=== PATIENT | female | born 1995 ===

== ENCOUNTER 2020-06-01 11:37 | Outpatient (REF) | payer OTHER, SELFPAY ==
[2020-06-01 14:47] LABS: Syphilis Screen Nonreactive (Nonreactive)
[2020-06-02 05:20] LABS: HIV AB/AG Nonreactive (Nonreactive); HIV Num 1 0.05 S/CO (0.00-0.99); ~HepC Num1 0.07 S/CO (0.00-0.79); ~Hepatitis C Antibody Nonreactive (Nonreactive)
[2020-06-02 05:39] LABS: HBsAGNum1 0.14 S/CO (0.00-0.99); Hepatitis B Surface Antigen Negative (Negative)
[2020-06-02 09:36] LABS: CT PCR NOT DETECTED (Not Detect.); NG PCR NOT DETECTED (Not Detect.)
[2020-06-09 05:47] LABS: HPV 16 RNA NOT DETECTED (NOT DETECTED); HPV mRNA E6/E7 rflx Detected (Not Detected)
== END 2020-06-01 11:38 | disposition home or self-care (01) ==
LOC: HO.LAB 11:37
PROVIDERS: PCP Nurse Practitioner Family; Visit Provider Advanced Practice Midwife
DX: Z01.419 Encounter for gynecological examination (general) (routine) without abnormal findings (principal); Z20.2 Contact with and (suspected) exposure to infections with a predominantly sexual mode of transmission; E89.0 Postprocedural hypothyroidism; F17.210 Nicotine dependence, cigarettes, uncomplicated; Z91.013 Allergy to seafood; Z97.5 Presence of (intrauterine) contraceptive device
CPT/HCPCS: 36415; 86780; 86803; 87340; 87389; 87491; 87591; 87624; 87625; 88141; 88142

== ENCOUNTER → 2020-06-22 14:33 | Outpatient (BNVA) | payer OTHER, SELFPAY | PROVIDERS: Visit Provider Internal Medicine ==

== ENCOUNTER 2020-06-25 07:30 | Outpatient (REF) | payer OTHER, SELFPAY ==
[2020-06-25 07:54] LABS: MANUAL DIFF FLAG NO
[2020-06-25 07:58] LABS: Basophils Percent Auto 0.6 % (0-2); Eosinophils Absolute Auto 0.5 X10*3/uL (0.0-0.4); Eosinophils Percent Auto 6.7 % (0-4); Hematocrit 43.8 % (37-47); Hemoglobin 14.5 g/dl (12.0-16.0); Imm Gran Abs Auto 0.01 X10*3/uL (0.00-0.03); Imm Gran Pct Auto 0.1 % (0.0-0.4); Lymphocytes Absolute Auto 2.7 X10*3/uL (1.2-4.9); Lymphocytes Percent Auto 38.6 % (20-40); Mean Corpuscular HGB Conc 33.1 g/dl (31.0-35.0); Mean Corpuscular Hemoglobin 28.6 pg (27.0-33.0); Mean Corpuscular Volume 86.4 fL (80-98); Mean Platelet Volume 9.1 fL (9.4-12.3); Monocytes Absolute Auto 0.5 X10*3/uL (0.1-1.2); Monocytes Percent Auto 7.3 % (2-11); Neutrophils Absolute Auto 3.3 X10*3/uL (2.0-8.3); Neutrophils Percent Auto 46.7 % (45-73); Platelet Count 341 X10*3/uL (160-400); Red Blood Count 5.07 X10*6/uL (4.20-5.50); Red Cell Distribution Width 12.6 % (11.0-16.0)
[2020-06-25 08:25] LABS: Alanine Aminotransferase 114 U/L (0-31); Albumin Level 4.7 g/dL (3.5-5.0); Alkaline Phosphatase 74 U/L (39-117); Anion Gap 10 (12-20); Aspartate Amino Transferase 69 U/L (5-31); Bilirubin Total 0.4 mg/dL (0.0-1.0); Blood Urea Nitrogen 10 mg/dL (9-16); Calcium 9.7 mg/dL (8.4-10.2); Carbon Dioxide 30 mmol/L (22-29); Chloride 104 mmol/L (96-108); Cholesterol 184 mg/dL; Estimated Glomerular Filt Rate > 60; Glucose Fasting 94 mg/dL (60-99); HDL Cholesterol 50 mg/dL; LDL Cholesterol Calculated 127 mg/dl; Potassium 4.5 mmol/L (3.3-5.1); Sodium 139 mmol/L (135-145); Total Protein 7.7 g/dL (6.5-8.0); Triglycerides 38 mg/dL
[2020-06-25 08:46] LABS: Free T4 (Free Thyroxine) 0.91 ng/dL (0.71-1.85); Thyroid Stimulating Hormone 1.21 uIU/mL (0.32-4.0); Vitamin D 25-OH Total 14.7 ng/mL (>30)
== END 2020-06-25 07:31 | disposition home or self-care (01) ==
LOC: HO.LAB 07:30
PROVIDERS: Absent Provider Nurse Practitioner Family; PCP Nurse Practitioner Family; Visit Provider Internal Medicine
DX: E89.0 Postprocedural hypothyroidism (principal); E04.2 Nontoxic multinodular goiter; E55.9 Vitamin D deficiency, unspecified
CPT/HCPCS: 36415; 80053; 80061; 82306; 84439; 84443; 85025

== ENCOUNTER → 2020-06-27 12:57 | Outpatient (BNVA) | payer OTHER, SELFPAY | PROVIDERS: Visit Provider Obstetrics & Gynecology ==

== ENCOUNTER 2020-06-30 16:28 | Outpatient (REF) | payer OTHER, SELFPAY ==
--- NOTE | ~2020-06-30 | US_ITS ---
EXAMINATION: US THYROID CLINICAL INFORMATION: Nontoxic multinodular goiter. COMPARISON: Ultrasound soft tissue head/neck thyroid dated 10/01/2017. TECHNIQUE: Linear transducer grayscale and color Doppler examination with attention to the region of the thyroid. FINDINGS: SIZE: Measurements of the solitary right thyroid lobe and nodules are given in sagittal, anteroposterior and transverse dimensions respectively. Right Thyroid Lobe: 5.1 x 1.3 x 1.7 cm, volume 6.0 mL. Previously 4.7 x 1.7 x 1.4 cm, volume 6.0 mL. Parenchyma: The gland echotexture is homogeneous. Thyroid vascularity is normal. Left Thyroid Lobe: Surgically absent. Isthmus: 0.2 cm in maximum AP dimension. Previously 0.2 cm. There are multiple colloid cysts seen in the right lobe. This is similar to September 2017 exam. The largest measures 0.7 x 0.4 x 0.3 cm in the inferior right lobe. No other focal thyroid nodule is seen. NODES: No lymphadenopathy is seen in the tissue surrounding the thyroid gland. US/US thyroid IMPRESSION: Right colloid cysts. Postsurgical change following left thyroidectomy. ACR TI-RADS RECOMMENDATION REFERENCE: Ultrasound-guided fine-needle aspiration, followup ultrasound, no further follow up. * TR1 (0 point) and TR 2 (2 points): No FNA or follow up * TR3 (3 points): FNA if more than or equal to 2.5 cm in maximum dimension, followup ultrasound in 1, 3 and 5 years if 1.5 to 2.4 cm in maximum dimension. * TR4 (4-6 points): FNA if more than or equal to 1.5 cm in maximum dimension, followup ultrasound in 1, 2, 3 and 5 years if 1 to 1.4 cm in maximum dimension. * TR5 (more than or equal to 7 points): FNA if more than or equal to 1 cm in maximum dimension, followup ultrasound every year for 5 years if 0.5 to 0.9 cm in maximum dimension. * TR3, TR4 or TR5 nodules that are below the size threshold for follow up receive no follow up.
== END 2020-06-30 16:29 | disposition home or self-care (01) ==
LOC: HO.US 16:28
PROVIDERS: PCP Nurse Practitioner Family; Visit Provider Internal Medicine
DX: E04.2 Nontoxic multinodular goiter (principal)
CPT/HCPCS: 76536

== ENCOUNTER 2020-07-02 07:15 | Outpatient (REF) | payer OTHER, SELFPAY ==
[2020-07-02 08:33] LABS: Alanine Aminotransferase 68 U/L (0-31); Albumin Level 4.4 g/dL (3.5-5.0); Alkaline Phosphatase 62 U/L (39-117); Aspartate Amino Transferase 46 U/L (5-31); Bilirubin Direct 0.2 mg/dL (0.0-0.5); Bilirubin Total 0.4 mg/dL (0.0-1.0); Total Protein 7.2 g/dL (6.5-8.0)
[2020-07-02 08:34] LABS: TSH reflex Free T4 0.93 uIU/mL (0.32-4.0)
== END 2020-07-02 07:16 | disposition home or self-care (01) ==
LOC: HO.LAB 07:15
PROVIDERS: Absent Provider Nurse Practitioner Family; PCP Internal Medicine; Visit Provider Internal Medicine
DX: R74.01 Elevation of levels of liver transaminase levels (principal); E89.0 Postprocedural hypothyroidism
CPT/HCPCS: 36415; 80076; 84443

== ENCOUNTER 2020-07-07 13:00 | Emergency (ER) | payer OTHER, SELFPAY ==
[2020-07-07 13:12] VITALS: BP 131/77; PULSE 108; RESP 20; TEMP 36.4; O2SAT 100; BMI 21.6
--- NOTE | 2020-07-07 13:52 | ED.ANXIETY ---
HPI - Anxiety General Chief Complaint: Anxiety Stated Complaint: anxiety attack Time Seen by Provider: 07/07/20 13:38 Source: patient Mode of arrival: ambulatory Limitations: no limitations History of Present Illness HPI narrative: 24 y/o female with history of untreated ADD and anxiety, fatty liver, former smoker presents to the ER after she had a severe panic attack while at work this morning. She states she has been dealing with a lot of stress and working 10+ hours per day. She hates her job. She had asked her PCP a while ago for a therapist and psychiatrist a while ago but never got referrals. She states her anxiety has been increasing a lot lately until she finally exploded this morning. She reports no t being in control, having SOB, chest pain, numbness and tingling of her hands and face. In triage she she still in distress however at the time of my evaluation her panic attack had completely resolved. MD complaint: anxiety Onset (ago): day(s) Symptoms: dyspnea, chest pain, palpitations, extremity numbness/tingling and perioral numbness/tingling Severity: severe Quality: improving Place: work History of similar episodes: Yes Provoking factors: emotional stress and work/job stress Relieving factors: deep breaths and rest Associated symptoms: shortness of breath and palpitations Related Data Home Medications Medication Instructions Recorded Confirmed albuterol sulfate 200 mcg capsules 200 mcg INHALATION cap 04/19/20 06/27/20 for inhalation levonorgestrel 20.1 mcg/24 hrs (6 INTRAUTERINE 06/01/20 06/27/20 yrs) 52 mg intrauterine device Previous Rx's Medication Instructions Recorded fluticasone propionate 50 1 spray INTRANASAL DAILY 30 Days 04/19/20 mcg/actuation nasal #16 g spray,suspension cholecalciferol (vitamin D3) 1,250 1,250 mcg PO QWEEK 56 Days #8 cap 06/27/20 mcg (50,000 unit) capsule hydrocortisone 2.5 % topical cream 1 appl TOPICAL BID PRN #20 g 06/27/20 montelukast 10 mg tablet 10 mg PO BEDTIME #30 tab 06/27/20 cholecalciferol (vitamin D3) 50 50 mcg PO DAILY 30 Days #30 cap 06/30/20 mcg (2,000 unit) capsule cetirizine 10 mg capsule 10 mg PO DAILY PRN 30 Days #30 cap 07/05/20 hydroxyzine HCl 50 mg PO BID PRN #10 tab 07/07/20 Allergies Allergy/AdvReac Type Severity Reaction Status Date / Time shellfish derived Allergy Unknown ANAPHYLAXIS Verified 07/07/20 13:17 [SHELLFISH DERIVED] Review of Systems Review of Systems: Constitutional: No Fever, No Chills ENT/Mouth: No Swallowing Difficulty Cardiovascular: + Chest Pain, + SOB Respiratory: No Cough, No Sputum, No Wheezing, No dyspnea Gastrointestinal: + Nausea, No Vomiting, No Diarrhea, No abdominal Pain Musculoskeletal: No joint pain, No Myalgias Skin: No Skin Lesions, No rash Neuro: No Weakness, + Numbness, No Dizziness, No Headache Psych: +Anxiety/Panic, + Depression, No SI, No HI, No VH/AH Heme/Lymph: No Bruising, No Lymphadenopathy All symptoms currently resolved. 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 Vitamin D deficiency Surgical History Hx of thyroidectomy Family History Family History Mother Asthma High blood pressure Father Diabetes Affective bipolar disorder Social History Social History Alcohol intake: never Patient Tobacco Use Status: Former Tobacco user Cigarettes Per Day: 7 Use of substances other than those prescribed or required for medical reasons: No Advance Directives: No Advance Directives Information Provided: No Patient : No Gender identity: female Physical Exam Vital Signs: Vital Signs: Last Vital Signs Temp 97.5 F 07/07/20 13:12 Pulse 108 H 07/07/20 13:12 Resp 20 07/07/20 13:12 BP 131/77 07/07/20 13:12 Pulse Ox 100 07/07/20 13:12 Body Mass Index 21.6 Appearance: Alert. Oriented X3. No acute distress. Eyes: Pupils equal, round and reactive to light. ENT: Pharynx normal. Neck: Normal inspection. Neck supple. CVS: Normal heart rate and rhythm. Pulses normal. Respiratory: No respiratory distress. Breath sounds normal. Abdomen: Soft and nontender. +BS x4 Skin: Skin warm and dry. Normal skin color. Normal skin turgor. No rashes. Extremities: No lower extremity edema. Neuro/Psych: Oriented X 3. No motor deficit. No sensory deficit. Good insight. Not suicidal. Speaks in complete sentences. Mood is appropriate, mildly anxious when speaking about event. Course Course Course Narrative: 24 y/o female with history of anxiety and ADD presenting with panic attack. Now resolved. Requesting to speak with someone about resources in the community. Not suicidal. CARE team consult placed. Reevaluation(s) Reevaluation #1: Patient agreeable to Partial Hospital Program - information provided. She will call tomorrow to get enrolled. PRN hydroxyzine ordered for d/c until she can be seen. Stable for d/c. Safety plan outlined with CARE team. Consultations Consultation #1: CARE team Discharge Plan Discharge Clinical Impression: Acute anxiety Patient Disposition: Home, Self-Care Instructions: Anxiety (ED) Additional Instructions: Recommend following up with the providers noted to you by the CARE team. Follow up with Partial Hospital Program. Recommend trial of prescribed hydroxyzine as needed for anxiety attacks. Follow up with your Primary Care doctor next week. Prescriptions: New hydroxyzine HCl 50 mg tablet 50 mg PO BID PRN (Reason: anxiety) Qty: 10 RF: 0 No Action cholecalciferol (vitamin D3) 1,250 mcg (50,000 unit) capsule 1,250 mcg PO QWEEK 56 Days Qty: 8 RF: 0 cholecalciferol (vitamin D3) 50 mcg (2,000 unit) capsule 50 mcg PO DAILY 30 Days Qty: 30 RF: 11 Zyrtec 10 mg capsule 10 mg PO DAILY PRN (Reason: allergy symptoms) 30 Days Qty: 30 RF: 0 albuterol sulfate 200 mcg capsule 200 mcg inhalation RF: 0 fluticasone propionate [Flonase Allergy Relief] 50 mcg/actuation spray,suspension 1 spray intranasal DAILY 30 Days Qty: 16 RF: 0 montelukast [Singulair] 10 mg tablet 10 mg PO BEDTIME Qty: 30 RF: 0 hydrocortisone 2.5 % cream 1 appl topical BID PRN (Reason: skin irritation) Qty: 20 RF: 0 Liletta 20.1 mcg/24 hrs (6 yrs) 52 mg intrauterine device intrauterine RF: 0 Stand Alone Forms: Work/School Release
--- NOTE | 2020-07-07 13:57 | PC.NURSE ---
Nemo MENCHACA in to bedside for primary eval.
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
== END 2020-07-07 18:20 | disposition home or self-care (01) ==
PROVIDERS: Emergency Provider Emergency Medicine; PCP Internal Medicine
DX: F41.1 Generalized anxiety disorder (principal); F43.0 Acute stress reaction; F41.0 Panic disorder [episodic paroxysmal anxiety]; R07.9 Chest pain, unspecified; Z87.891 Personal history of nicotine dependence; Z79.899 Other long term (current) drug therapy; Z56.3 Stressful work schedule
CPT/HCPCS: 99284

== ENCOUNTER 2020-08-01 09:15 | Outpatient (RCR) | payer OTHER, SELFPAY ==
[2020-07-15 12:33] VITALS: BMI 21.7
--- NOTE | 2020-07-15 13:07 | PC.ADMIT ---
Patient reports she went to the emergency room on 07/07/20 as she had a panic attack and felt she was going to . Stated they referred her to the [facility] program for treatment. Patient reports she took a ESTHELA from her job d/t symptoms. Patient reports increased stress since the pandemic and reports much work related stress and also stressed about medical issues. Smoking marijuana daily to cope. Patient is alert and oriented x4. Appears motivated for treatment. Wants to work on her mental health. Denied SI at present. Gave verbal permission to email her a copy of her safety plan. She has the crisis number if needed. Medications reconciled with patient and patient's pharmacy. Takes medications as prescribed. Patient reports she was told she may have a fatty liver however this is not diagnosed, liver enzymes are elevated. She is getting a referral from her doctor for a f/u appointment with a visual display manager
--- NOTE | 2020-07-15 16:50 | P.HPPSP_ITS ---
HPI Chief Complaint: ADD, Anxiety, Depression Sources of Information: patient interviewed and crisis/core team assessment reviewed HPI Medical Problems Affecting Mental Status: No Narrative: Patient is a 24 year-old female presenting with symptoms of increased anxiety and depression, including feeling helpless, hopeless, difficulty eating and sleeping, and panic attack on 07/07/20. Past Psychiatric History: Patient was diagnosed with ADD at age 6 to 7, never taken medications for this. Was placed on 24 hour hold at age 18 for having dark thought . No history of [facility] or partial programs. Received treatment at age 18 in [place], trials of Wellbutrin, zoloft, hydroxyzine. Reports sexual side effects with Zoloft, feeling increased anxiety with Wellbutrin. Medical Evaluation Reviewed: Yes Patient has existing thyroid issues. Reports thyroid levels are checked regularly, and current levels within normal limits. 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 Patient denies any episodes of manic or hypomanic symptoms, either in history or current. Surgical History Hx of thyroidectomy Family History: Father bipolar disorder, takes lithium, abilify, several other medications. Mother past cocaine use, alcohol, non currently. Sister social anxiety disorder, no medications, did attend 3 month intensive treatment program as a teen. Social History: Patient was diagnosed with ADD at age 6 or 7. Has never taken meds. Parents when patient was young. she lived with her father until age 7, and then lived with mother and sister. Currently lives mother, step- father, and sister. Had IEP throughout school, has HS diploma. Attended college, but only for 1 to 2 semesters. Substance History: Uses marijuana daily, for anxiety and sleep. Denies any other substance use. Trauma History: None reported. Diagnostics Vital Signs (24Hr): Body Mass Index 21.7 Meds/Allergies Meds Narrative: Has recently been given several day script for hydrozyzine 50mg twice daily prn script from ED, for relief of anxiety symtoms. Allergies Allergies Allergy/AdvReac Type Severity Reaction Status Date / Time shellfish derived Allergy Unknown ANAPHYLAXIS Verified 07/07/20 13:17 [SHELLFISH DERIVED] Mental Status Exam Mental Status Exam Patient Appearance: Well Grooomed and Appropriate Patient Orientation: Person, Place, Time and Situation Level of Consciousness: Awake and Appropriate Patient Behavior: Appropriate, Talkative, Anxious and Good Eye Contact Mood Description: Anxious Affect Description: Appropriate and Anxious Patient Cognition Impaired: No Ability to Follow Directions: Excellent Speech Pattern: Clear and Appropriate Memory Description: Intact Hallucinations: None Delusions: Not Present Thought Process: Intact Thought Content: positive for Intact Depressive Symptoms: Increased Anxiety and Difficulty Sleeping Judgement: Good Judgement and Insight: Judgment and insight appear grossly intact. Assessment & Plan Certification Patient is 24 year-old female with anxiety, depression, recent panic attacks. Discussed medications, patient willing to try escitalopram at a low dose to start. She is concerned about any potential sexual side effects, but would like to try it nonetheless. She is also interested in having hydroxyzine for a short time, to help as needed with anxiety / panic symptoms, as escitalopram's effects are pending. PLAN: Start escitalopram 5mg daily. Hydroxyzine 25mg twice daily as needed for anxiety symptoms. Follow-up and reassess next week. I certify that partial hospital treatment is medically necessary due to the symptoms and problems resulting from the patient's mental illness and the failure to treat the patient at the partial hospital level of care would likely result in the patient requiring inpatient psychiatric care which could not be prevented at a less intensive level of care. Telehealth Telehealth Location of provider rendering services: practice address Location of patient: address on file Patient Identification confirmed using: Name, : Yes Telehealth method: video Patient verbally consented to treatment: Yes Patient verbally consented to billing insurance company: Yes Patient informed of any privacy concerns related to visit: Yes Time spent with patient (mins): 40
--- NOTE | 2020-07-18 15:24 | PC.NURSE ---
I called [facility] to inquire about status of referral for providers. A clinician has been assigned and will call client directly.
--- NOTE | 2020-07-18 15:55 | P.PNPSP_ITS ---
Subjective Subjective Date of Service: 07/18/20 Reason For Visit: ADD, Anxiety, Depression Medical Problems Affecting Mental Status: No Interim History: Patient reports she tolerated lexapro 5mg over weekend, no side effects. Discussed increase to 10mg. She is in agreement. Obtained verbal release of information consent for [facility] paperwork to be completed and sent to her short term disability provider. Medication Compliance: Yes Side effects from medications: No Attending Groups: Yes Review of Systems Review of Systems Yes all other systems are reviewed and are negative Mental Status Exam Mental Status Exam Patient Appearance: Well Grooomed Patient Orientation: Person, Place, Time and Situation Level of Consciousness: Awake and Appropriate Patient Behavior: Appropriate and Cooperative Mood Description: Calm and Appropriate Affect Description: Calm, Appropriate and Anxious Patient Cognition Impaired: No Ability to Follow Directions: Excellent Speech Pattern: Clear and Appropriate Memory Description: Intact Hallucinations: None Delusions: Not Present Thought Process: Intact, Goal Oriented and Linear Thought Content: positive for Intact, positive for Goal Oriented, positive for Linear and positive for Logical Judgement: Good Diagnostics Vital Signs (24Hr): Body Mass Index 21.7 Assessment & Plan Patient educated on: diagnosis, medication risk/benefits and therapeutic strategies Reason for contiued partial hosp. stay Substantial Risk for: inability to function and med/psych decompensation Certification PLAN: Increase lexapro to 10mg daily. Patient has vistaril 25mg BID prn available short-term for now. Verbal consent obtained, FMLA completed, to be sent to short-term disability provider. Follow-up in one week, sooner if needed. I certify that partial hospital treatment is medically necessary due to the sym ptoms and problems resulting from the patient's mental illness and the failure to treat the patient at the partial hospital level of care would likely result in the patient requiring inpatient psychiatric care which could not be prevented at a less intensive level of care. Greater than 50% of the session was spent on counseling and/or coordination of care Discharge Plan Discharge Attending provider: Ubaldo Baron Medications: New hydroxyzine HCl 25 mg tablet 25 mg PO BID MDD 50mg PRN (Reason: anxiety) 7 Days Qty: 14 RF: 0 escitalopram oxalate 10 mg tablet 10 mg PO DAILY Qty: 7 RF: 0 Discontinued hydroxyzine HCl 50 mg tablet 50 mg PO BID PRN (Reason: anxiety) Qty: 10 RF: 0 No Action cholecalciferol (vitamin D3) 1,250 mcg (50,000 unit) capsule 1,250 mcg PO QWEEK 56 Days Qty: 8 RF: 0 cholecalciferol (vitamin D3) 50 mcg (2,000 unit) capsule 50 mcg PO DAILY 30 Days Qty: 30 RF: 11 Zyrtec 10 mg capsule 10 mg PO DAILY PRN (Reason: allergy symptoms) 30 Days Qty: 30 RF: 0 albuterol sulfate [ProAir HFA] 90 mcg/actuation Hfa Aerosol Inhaler 2 puff INHALATION Q4-6H PRN (Reason: Shortness Of Breath) RF: 0 montelukast [Singulair] 10 mg tablet 10 mg PO BEDTIME Qty: 30 RF: 0 hydrocortisone 2.5 % cream 1 appl topical BID PRN (Reason: skin irritation) Qty: 20 RF: 0 Liletta 20.1 mcg/24 hrs (6 yrs) 52 mg intrauterine device intrauterine RF: 0 Telehealth Telehealth Location of provider rendering services: practice address Location of patient: address on file Patient Identification confirmed using: Name, : Yes Telehealth method: video Patient verbally consented to treatment: Yes Patient verbally consented to billing insurance company: Yes Patient informed of any privacy concerns related to visit: Yes Time spent with patient (mins): 15
--- NOTE | 2020-07-25 14:20 | PC.NURSE ---
I spoke with Ruth at [facility] re client has not yet received a call from a therapist. Client was assigned to Nilesh Mckeon and she will speak with him.
--- NOTE | 2020-07-25 17:04 | HO.PHPPROGNO ---
Subjective Subjective Date of Service: 07/25/20 Reason For Visit: ADD, Anxiety, Depression Guardianship: No Medical Problems Affecting Mental Status: No Interim History: Mariana reports she is experiencing sexual side effects from lexapro, and does not want to continue it. She reports that she believes her attention deficit disorder is interfering with being able to function. She would like to consider Wellbutrin again, as it could work both with her ADD and depression symptoms. She continues with hydroxyzine as needed for anxiety, but states she has not used a lot , because she is currently at home and her anxiety has been tolerable the last few days. We discussed her previous trial of Wellbutrin, and that she had reported she did not like the effect, and felt activated. We discussed starting at a low dose and monitoring for any activation. She was agreeable to this plan. Medication Compliance: Yes Side effects from medications: Yes Attending Groups: Yes Review of Systems Review of Systems Yes all other systems are reviewed and are negative Mental Status Exam Mental Status Exam Patient Appearance: Well Grooomed and Appropriate Patient Orientation: Person, Place, Time and Situation Level of Consciousness: Awake and Appropriate Patient Behavior: Appropriate and Cooperative Mood Description: Appropriate Affect Description: Appropriate, Depressed and Anxious Patient Cognition Impaired: No Ability to Follow Directions: Excellent Speech Pattern: Clear Memory Description: Intact Hallucinations: None Delusions: Not Present Thought Content: positive for Intact Depressive Symptoms: Difficulty Concentrating Judgement: Good Diagnostics Vital Signs (24Hr): Body Mass Index 21.7 Assessment & Plan Assessment & Plan (1) Generalized anxiety disorder: Status: Acute Code(s): F41.1 - Generalized anxiety disorder Assessment and Plan: Patient reports she does not wish to continue with SSRI at this time, requests stop the lexapro and switch to bupropion. Denies any history of seizures. D/c lexapro. Tomorrow, Will start Wellbutrin SR 100mg daily for 3 days, then increase to BID. Will follow-up in one week, sooner if needed. (2) Depression: Status: Acute Code(s): F32.9 - Major depressive disorder, single episode, unspecified Assessment and Plan: Patient will be start Wellbutrin SR 100mg tomorrow. (3) Panic disorder: Status: Acute Code(s): F41.0 - Panic disorder [episodic paroxysmal anxiety] Assessment and Plan: Patient has supply of hydroxyzine prn at home for increased anxiety / panic attack. She reports she has not had any episodes of severe anxiety / panic since last week. (4) ADD (attention deficit disorder): Status: Acute Code(s): F98.8 - Other specified behavioral and emotional disorders with onset usually occurring in childhood and adolescence Assessment and Plan: Patient wishes to start Wellbutrin tomorrow, is hoping medication will address both ADD and depression symptoms. Certification I certify that partial hospital treatment is medically necessary due to the symptoms and problems resulting from the patient's mental illness and the failure to treat the patient at the partial hospital level of care would likely result in the patient requiring inpatient psychiatric care which could not be prevented at a less intensive level of care. Greater than 50% of the session was spent on counseling and/or coordination of care Discharge Plan Discharge Attending provider: Ubaldo Baron Medications: New hydroxyzine HCl 25 mg tablet 25 mg PO BID MDD 50mg PRN (Reason: anxiety) 7 Days Qty: 14 RF: 0 bupropion HCl [Wellbutrin SR] 100 mg tablet sustained-release 12 hr 100 mg PO DAILY Qty: 14 RF: 0 Discontinued hydroxyzine HCl 50 mg tablet 50 mg PO BID PRN (Reason: anxiety) Qty: 10 RF: 0 No Action cholecalciferol (vitamin D3) 1,250 mcg (50,000 unit) capsule 1,250 mcg PO QWEEK 56 Days Qty: 8 RF: 0 cholecalciferol (vitamin D3) 50 mcg (2,000 unit) capsule 50 mcg PO DAILY 30 Days Qty: 30 RF: 11 Zyrtec 10 mg capsule 10 mg PO DAILY PRN (Reason: allergy symptoms) 30 Days Qty: 30 RF: 0 montelukast 10 mg tablet 10 mg PO BEDTIME 90 Days Qty: 90 RF: 1 albuterol sulfate [ProAir HFA] 90 mcg/actuation Hfa Aerosol Inhaler 2 puff INHALATION Q4-6H PRN (Reason: Shortness Of Breath) RF: 0 hydrocortisone 2.5 % cream 1 appl topical BID PRN (Reason: skin irritation) Qty: 20 RF: 0 Liletta 20.1 mcg/24 hrs (6 yrs) 52 mg intrauterine device intrauterine RF: 0 Telehealth Telehealth Location of provider rendering services: practice address Location of patient: address on file Patient Identification confirmed using: Name, : Yes Telehealth method: video Patient verbally consented to treatment: Yes Patient verbally consented to billing insurance company: Yes Patient informed of any privacy concerns related to visit: Yes Time spent with patient (mins): 15
--- NOTE | 2020-08-01 14:32 | P.PNPSP_ITS ---
Subjective Subjective Date of Service: 08/01/20 Reason For Visit: ADD, Anxiety, Depression Guardianship: No Medical Problems Affecting Mental Status: No Interim History: Mariana met with this marketing underwriter on her last day in [facility]. She reports feeling perhaps some improvement with the Wellbutrin, but that she is not ?100% ?decided as to whether or not she will remain on an antidepressant medication. Denies any type of side effects at this time. She reports that she has been taking the hydroxyzine, ?as it helps me fall asleep at night ?. She denies any safety concerns, and none noted. We discussed both medications further. She states she would like to remain on the Wellbutrin at this time. However, it was decided that she will hold off on any type of dose increase until she meets with her outpatient prescriber for the 1st time. Patient would like a refill script sent to her pharmacy for both Wellbutrin and hydroxyzine. . She states that she has met at [facility] for her intake, and plans to see a prescriber there. She reports some anxiety regarding returning to work tomorrow, but that she feels overall she is ready to leave program. Medication Compliance: Yes Side effects from medications: No Attending Groups: Yes Review of Systems Medical Review of Systems: unchanged Review of Systems Review of Systems Yes all other systems are reviewed and are negative Mental Status Exam Mental Status Exam Narrative: Well groomed, well nourished female, in no apparent distress. Patient Appearance: Well Grooomed and Appropriate Patient Orientation: Person, Place, Time and Situation Level of Consciousness: Awake and Appropriate Patient Behavior: Appropriate and Cooperative Mood Description: Appropriate and Anxious (Reports she is feeling some anxiety regarding leaving program in going back to work, but overall states she is much improved.) Affect Description: Appropriate and Anxious (Tearful at times during the encounter, but overall much less anxious.) Patient Cognition Impaired: No Ability to Follow Directions: Excellent Speech Pattern: Clear Memory Description: Intact Hallucinations: None Delusions: Not Present Thought Process: Intact Thought Content: positive for Intact Judgement: Good Diagnostics Vital Signs (24Hr): Body Mass Index 21.7 Assessment & Plan Assessment & Plan (1) Depression: Status: Acute Code(s): F32.9 - Major depressive disorder, single episode, unspecified Assessment and Plan: Continue with Wellbutrin SR 100 mg daily for now. Script sent to pharmacy for 30 days supply. (2) Generalized anxiety disorder: Status: Acute Code(s): F41.1 - Generalized anxiety disorder Assessment and Plan: Continue with hydroxyzine p.r.n. for anxiety, sleep, scripts sent to pharmacy. Patient educated on: diagnosis, medication risk/benefits and therapeutic strategies Reason for contiued partial hosp. stay Substantial Risk for: stable for discharge Certification I certify that partial hospital treatment is medically necessary due to the symptoms and problems resulting from the patient's mental illness and the failure to treat the patient at the partial hospital level of care would likely result in the patient requiring inpatient psychiatric care which could not be prevented at a less intensive level of care. Greater than 50% of the session was spent on counseling and/or coordination of care Discharge Plan Discharge Attending provider: Ubaldo Baron Additional Instructions: Client completed an intake at [facility] 07/29/20 and is waiting to be assigned a therapist and prescriber Medications: New hydroxyzine HCl 25 mg tablet 25 mg PO BID MDD 50mg PRN (Reason: anxiety) 7 Days Qty: 14 RF: 0 bupropion HCl [Wellbutrin SR] 100 mg tablet sustained-release 12 hr 100 mg PO DAILY Qty: 14 RF: 0 Discontinued hydroxyzine HCl 50 mg tablet 50 mg PO BID PRN (Reason: anxiety) Qty: 10 RF: 0 No Action cholecalciferol (vitamin D3) 1,250 mcg (50,000 unit) capsule 1,250 mcg PO QWEEK 56 Days Qty: 8 RF: 0 cholecalciferol (vitamin D3) 50 mcg (2,000 unit) capsule 50 mcg PO DAILY 30 Days Qty: 30 RF: 11 montelukast 10 mg tablet 10 mg PO BEDTIME 90 Days Qty: 90 RF: 1 cetirizine 10 mg tablet 10 mg PO DAILY PRN (Reason: for allergies) Qty: 30 RF: 3 albuterol sulfate [ProAir HFA] 90 mcg/actuation Hfa Aerosol Inhaler 2 puff INHALATION Q4-6H PRN (Reason: Shortness Of Breath) RF: 0 hydrocortisone 2.5 % cream 1 appl topical BID PRN (Reason: skin irritation) Qty: 20 RF: 0 Liletta 20.1 mcg/24 hrs (6 yrs) 52 mg intrauterine device intrauterine RF: 0 Stand Alone Forms: Patient Portal Discharge page Telehealth Telehealth Location of provider rendering services: practice address Location of patient: address on file Patient Identification confirmed using: Name, : Yes Telehealth method: video Patient verbally consented to treatment: Yes Patient verbally consented to billing insurance company: Yes Patient informed of any privacy concerns related to visit: Yes Time spent with patient (mins): 15
== END 2020-08-02 07:10 | disposition home or self-care (01) ==
LOC: HO.PHPA 09:15
PROVIDERS: Visit Provider Psychiatry & Neurology Psychiatry
DX: F32.9 Major depressive disorder, single episode, unspecified (principal); F41.0 Panic disorder [episodic paroxysmal anxiety]; F41.1 Generalized anxiety disorder; F98.8 Other specified behavioral and emotional disorders with onset usually occurring in childhood and adolescence; Z79.899 Other long term (current) drug therapy
CPT/HCPCS: 90791; 90792; 90853; 99212

== ENCOUNTER → 2020-09-13 10:00 | Outpatient (BNVA) | payer OTHER, SELFPAY | PROVIDERS: PCP Internal Medicine; Visit Provider Internal Medicine Gastroenterology ==

== ENCOUNTER 2020-10-26 10:22 | Outpatient (REF) | payer OTHER, SELFPAY ==
--- NOTE | ~2020-10-26 | US_ITS ---
EXAMINATION: US COMPLETE ABDOMEN WITH LIVER ELASTOGRAPHY CLINICAL INFORMATION: Elevated liver transaminase. COMPARISON: None TECHNIQUE: Real-time imaging of the abdominal viscera. Noninvasive ultrasound liver fibrosis assessment is performed using Vargas ElastPQ point quantification shear wave elastography (pSWE) with a C5-2 MHz transducer. Multiple elastography samples are obtained. FINDINGS: PANCREAS: Normal. The visualized pancreatic head and body are normal in appearance. The remainder of the pancreas is obscured from visualization by the overlying bowel gas. ABDOMINAL AORTA: The proximal, middle, and distal aortic segments are normal in caliber. INFERIOR VENA CAVA: Visualized portions are normal. LIVER: Normal. The liver demonstrates normal size, contour and echogenicity. No focal lesion or intrahepatic biliary duct dilatation. The right lobe measures 12.6 cm in length. The left lobe measures 8.6 cm in length. Portal flow is hepatopedal. Shear wave liver elastography median stiffness is 1.19 m/s (reference: normal median stiffness is 1.3 m/s or less). IQR/median stiffness to assess sampling precision is 0.09 (reference: good quality data set is IQR/median stiffness of 0.15 or less). GALLBLADDER: Gallbladder wall thickness measures 0.16. The gallbladder is physiologically distended without evidence of stones, sludge, polyps, wall thickening or pericholecystic fluid. COMMON BILE DUCT: Normal in caliber measuring 0.16 cm in diameter. RIGHT KIDNEY: Normal. No hydronephrosis. No renal calculi or focal parenchymal lesions. The kidney measures 10.6 cm in maximum dimension. LEFT KIDNEY: Normal. No hydronephrosis. No renal calculi or focal parenchymal lesions. The kidney measures 11.1 cm in maximum dimension. SPLEEN: Normal. The spleen measures 8.8 cm in maximum dimension. FREE FLUID: None US/US abdomen comp w elastography IMPRESSION: 1. Unremarkable complete abdomen ultrasound. 2. Liver elastography: Median liver stiffness 1.19 m/s. Normal. REFERENCE: Society of Radiologists in Ultrasound Liver Stiffness Thresholds (2020): LIVER STIFFNESS THRESHOLDS: *Liver Stiffness equal or less than 1.3 m/s: High probability of being normal. *Liver Stiffness less than 1.7 m/s: In the absence of other known clinical signs, rules out compensated advanced chronic liver disease. *Liver Stiffness 1.7-2.1 m/s: Suggestive of compensated advanced chronic liver disease but need further test for confirmation. *Liver Stiffness over 2.1 m/s: Rules in compensated advanced chronic liver disease. *Liver Stiffness over 2.4 m/s: Suggestive of clinically significant portal hypertension. QUALITY OF DATA SET: *IQR/Median value equal or less than 0.15 implies a quality data set. *IQR/Median value over 0.15 implies a poor quality data set. SIGNIFICANT CHANGE FROM PRIOR EXAM: Significant change if liver stiffness measurement is 10% or greater from prior exam. OTHER CONSIDERATIONS: The stage of liver fibrosis may be overestimated in the setting of acute hepatitis, liver inflammation, elevated liver function tests, hepatic vascular congestion, obstructive cholestasis, non-fasting state, and infiltrative diseases such as amyloidosis and lymphoma. In some patients with NAFLD, the liver stiffness thresholds for compensated advanced chronic liver disease may be lower. In causes other than viral hepatitis and NAFLD, liver stiffness thresholds are not well established.
== END 2020-10-26 10:23 | disposition home or self-care (01) ==
LOC: HO.US 10:22
PROVIDERS: PCP Internal Medicine; Visit Provider Internal Medicine Gastroenterology
DX: R74.01 Elevation of levels of liver transaminase levels (principal); R79.89 Other specified abnormal findings of blood chemistry
CPT/HCPCS: 76705; 76981

== ENCOUNTER → 2020-12-01 09:47 | Outpatient (BNVA) | payer OTHER, SELFPAY | PROVIDERS: PCP Internal Medicine; Visit Provider Internal Medicine ==

== ENCOUNTER 2021-08-08 16:22 | Emergency (ER) | payer OTHER, SELFPAY ==
[2021-08-08 17:54] VITALS: BP 110/72; PULSE 110; RESP 18; TEMP 37.6; O2SAT 98; BMI 23.0
[2021-08-08 18:13] LABS: Strep A Nucleic Acid Negative (Negative)
[2021-08-08 18:20] LABS: COVID-19 Test Negative (Negative); IDNOW Serial# 16C4AD1C
--- NOTE | 2021-08-08 20:48 | ED.URI ---
HPI - URI/Sore Throat General Chief Complaint: Upper Respiratory Symptoms Stated Complaint: fever, sore throat, body aches and chills Time Seen by Provider: 08/08/21 20:48 History of Present Illness HPI Narrative: Patient complains of 1 day of sore throat, feeling feverish but did not take her temperature, body aches and some fatigue, she tolerates p.o. but it does hurt to swallow, no cough no shortness of breath no runny nose Related Data Home Medications Medication Instructions Recorded Confirmed levonorgestrel 20.1 mcg/24 hrs (6 intrauterine 06/01/20 12/01/20 yrs) 52 mg intrauterine device (Liletta) amoxicillin 500 mg tablet 500 mg PO DAILY 12/01/20 12/01/20 ibuprofen 200 mg tablet 200 mg PO Q6H PRN 12/01/20 12/01/20 montelukast 10 mg tablet 10 mg PO BEDTIME PRN 12/01/20 12/01/20 Previous Rx's Medication Instructions Recorded hydrocortisone 2.5 % topical cream 1 appl topical BID PRN skin 06/27/20 irritation #20 grams hydroxyzine HCl 25 mg tablet 25 mg PO BID PRN anxiety 7 days 07/15/20 #14 tabs albuterol sulfate 90 mcg/actuation 2 puff inhalation Q4-6H PRN 05/03/21 aerosol inhaler (ProAir HFA) Shortness Of Breath 30 days #6.7 grams cetirizine 10 mg tablet 10 mg PO DAILY PRN for allergies 06/27/21 #90 tabs cholecalciferol (vitamin D3) 50 50 mcg PO DAILY 30 days #30 caps 06/29/21 mcg (2,000 unit) capsule Allergies Allergy/AdvReac Type Severity Reaction Status Date / Time shellfish derived Allergy Unknown ANAPHYLAXIS Verified 12/01/20 10:20 [SHELLFISH DERIVED] Review of Systems Review of Systems: Positive for sore throat fever body aches and fatigue Negatives are no chills no headache no confusion no dizziness no fainting or feeling faint no difficulty breathing no difficulty swallowing no stiff neck no chest pain no shortness of breath no cough no runny nose no abdominal pain no nausea vomiting or diarrhea no dysuria no skin rash no joint pains Yes all other systems are reviewed and are negative PMFSH Past Medical History Source: nursing notes reviewed Medical History Asthma Elevated LFTs Generalized anxiety disorder Multinodular thyroid Nail fungus Remove/insert IUD Transaminitis Vaccine reaction Vitamin D deficiency Surgical History History of root canal procedure Hx of thyroidectomy Family History Family History Mother Asthma High blood pressure Father Diabetes Affective bipolar disorder Mental health disorder Social History Social History Household Members: Family Housing: House Alcohol intake: current Alcohol intake frequency: holidays/special occasions only Patient Tobacco Use Status: Current everyday Tobacco user Tobacco use type: Cigarette Cigarettes Per Day: 5 e-Cigarette/Vaping Use: Never Used Second Hand Smoke Exposure: Yes Substance Use Type: Marijuana service: No Current occupational status: employed Gender identity: Female Physical Exam Vital Signs: Vital Signs: Last Vital Signs Temp 99.7 F 08/08/21 17:54 Pulse 110 H 08/08/21 17:54 Resp 18 08/08/21 17:54 BP 110/72 08/08/21 17:54 Pulse Ox 98 08/08/21 17:54 O2 Del Method 08/08/21 17:54 BMI result Body Mass Index 23.0 General appearance comfortable no distress The ears are clear with normal tympanic membranes and canals The sinuses are non tender, not congested The pharynx had mild pharyngeal erythema no swollen tonsils no exudate, voice was normal, uvula was midline, mucous membranes are moist The neck is supple Chest was clear to auscultation bilateral Heart no murmur Abdomen soft nontender Skin no rashes Extremities full range of motion x4 Course Course Course Narrative: COVID and strep testing were negative, patient was comfortable appearing tolerating p.o., was given 1 dose of steroid to relieve throat inflammation and was discharged MDM - URI/Sore Throat Lab Data Labs: Lab Results 08/08/21 08/08/21 Range/Units 17:55 17:55 COVID-19 ([facility]WIN) Negative (Negative) COVID-19 Clin Com See Note S. pyogenes GrpA KIMO Negative (Negative) Discharge Plan Discharge Clinical Impression: Acute viral syndrome Patient Disposition: Home, Self-Care Additional Instructions: COVID testing was negative, strep testing of the throat was negative No sign of any dangerous condition now If symptoms continue you might want a repeat a COVID test as sometimes the 1st test is negative Return any time any worse condition or concerns Use Tylenol or Motrin for fever and drink plenty of fluids You were given 1 dose of steroid in the ER which often helps relieve inflammation in the throat Prescriptions: No Action albuterol sulfate [ProAir HFA] 90 mcg/actuation HFA aerosol inhaler 2 puff INHALATION Q4-6H PRN (Reason: Shortness Of Breath) 30 Days Qty: 6.7 3RF cetirizine 10 mg tablet 10 mg PO DAILY PRN (Reason: for allergies) Qty: 90 1RF cholecalciferol (vitamin D3) 50 mcg (2,000 unit) capsule 50 mcg PO DAILY 30 Days Qty: 30 0RF hydroxyzine HCl 25 mg tablet 25 mg PO BID MDD 50mg PRN (Reason: anxiety) 7 Days Qty: 14 0RF hydrocortisone 2.5 % cream 1 appl topical BID PRN (Reason: skin irritation) Qty: 20 0RF Liletta 20.1 mcg/24 hrs (6 yrs) 52 mg intrauterine device intrauterine amoxicillin 500 mg tablet 500 mg PO DAILY ibuprofen 200 mg tablet 200 mg PO Q6H PRN montelukast 10 mg tablet 10 mg PO BEDTIME PRN Stand Alone Forms: Work/School Release Interventions: ED Discharge Assessment Last Done: 08/08/21 22:06 Discharge Date/Time: 08/08/21 22:09
[2021-08-08] MEDS: dexAMETHasone 2 MG TABLET 10 MG PO (21:03)
[2021-08-08] MEDS: Ibuprofen 400 MG TABLET PO (21:14)
== END 2021-08-08 22:09 | disposition home or self-care (01) ==
PROVIDERS: Emergency Provider Emergency Medicine; PCP Internal Medicine
DX: B34.9 Viral infection, unspecified (principal); R50.9 Fever, unspecified; M79.10 Myalgia, unspecified site; J02.9 Acute pharyngitis, unspecified; Z20.822 Contact with and (suspected) exposure to COVID-19; F17.210 Nicotine dependence, cigarettes, uncomplicated; Z71.6 Tobacco abuse counseling; Z79.899 Other long term (current) drug therapy
CPT/HCPCS: 87635; 87651; 99283; J8540

== ENCOUNTER 2022-03-26 16:11 | Outpatient (REF) | payer OTHER, SELFPAY ==
--- NOTE | ~2022-03-26 | US_ITS ---
EXAMINATION: US THYROID CLINICAL INFORMATION: Nontoxic multinodular goiter. Left thyroidectomy. COMPARISON: Thyroid ultrasound 06/30/2020 and 10/01/2017. TECHNIQUE: Linear transducer grayscale and color Doppler examination with attention to the region of the thyroid. FINDINGS: SIZE: Measurements of the right thyroid lobe and nodules are given in sagittal, anteroposterior and transverse dimensions respectively. Right Thyroid Lobe: 4.8 x 1.5 x 1.8 cm, volume 6.9 mL. Previously 5.1 x 1.3 x 1.7 cm, volume 6.0 mL. Parenchyma: The gland echotexture is homogeneous. Thyroid vascularity is normal. Left Thyroid Lobe: Surgically absent. Isthmus: 0.2 cm in maximum AP dimension. Previously 0.2 cm. No focal thyroid nodule is seen. LEFT THYROIDECTOMY BED: No suspicious nodules. NODES: No lymphadenopathy is seen in the tissue surrounding the thyroid gland. US/US thyroid IMPRESSION: Status post left hemithyroidectomy. No abnormal thyroid nodules or surgical bed lesions. ACR TI-RADS RECOMMENDATION REFERENCE: Ultrasound-guided fine-needle aspiration, followup ultrasound, no further follow up. * TR1 (0 point) and TR2 (2 points): No FNA or follow up * TR3 (3 points): FNA if more than or equal to 2.5 cm in maximum dimension, followup ultrasound in 1, 3 and 5 years if 1.5 to 2.4 cm in maximum dimension. * TR4 (4-6 points): FNA if more than or equal to 1.5 cm in maximum dimension, followup ultrasound in 1, 2, 3 and 5 years if 1 to 1.4 cm in maximum dimension. * TR5 (more than or equal to 7 points): FNA if more than or equal to 1 cm in maximum dimension, followup ultrasound every year for 5 years if 0.5 to 0.9 cm in maximum dimension. * TR3, TR4 or TR5 nodules that are below the size threshold for follow up receive no follow up.
== END 2022-03-26 16:12 | disposition home or self-care (01) ==
LOC: HO.US 16:11
PROVIDERS: PCP Internal Medicine; Visit Provider Internal Medicine
DX: E04.2 Nontoxic multinodular goiter (principal)
CPT/HCPCS: 76536

== ENCOUNTER 2022-04-14 08:27 | Outpatient (REF) | payer OTHER, SELFPAY ==
[2022-04-14 09:56] LABS: Free T4 (Free Thyroxine) 0.91 ng/dL (0.71-1.85); Vitamin D 25-OH Total 12.9 ng/mL (>30)
== END 2022-04-14 08:28 | disposition home or self-care (01) ==
LOC: HO.LAB 08:27
PROVIDERS: PCP Internal Medicine; Visit Provider Internal Medicine
DX: E04.2 Nontoxic multinodular goiter (principal); E55.9 Vitamin D deficiency, unspecified
CPT/HCPCS: 36415; 82306; 84439; 84443

== ENCOUNTER → 2022-04-18 08:31 | Outpatient (BNVA) | payer OTHER, SELFPAY | PROVIDERS: PCP Internal Medicine; Visit Provider Internal Medicine | DX: Z13.89 Encounter for screening for other disorder (principal) ==

== ENCOUNTER 2022-06-09 07:35 | Outpatient (REF) | payer OTHER, SELFPAY ==
[2022-06-09 08:30] LABS: Estimated Average Glucose 103 mg/dL; Hemoglobin A1c % 5.2 %
[2022-06-09 08:32] LABS: Glucose Fasting 98 mg/dL (60-99)
[2022-06-09 08:58] LABS: Cortisol Random 12.6 ug/dL
[2022-06-09 09:10] LABS: Alanine Aminotransferase 104 U/L (0-31); Albumin Level 4.5 g/dL (3.5-5.0); Alkaline Phosphatase 96 U/L (39-117); Anion Gap 10 (12-20); Aspartate Amino Transferase 47 U/L (5-31); Bilirubin Total 0.4 mg/dL (0.0-1.0); Blood Urea Nitrogen 9 mg/dL (9-16); Calcium 9.4 mg/dL (8.4-10.2); Carbon Dioxide 26 mmol/L (22-29); Chloride 108 mmol/L (96-108); Cholesterol 215 mg/dL; Estimated Glomerular Filt Rate > 60; Free T4 (Free Thyroxine) 0.89 ng/dL (0.71-1.85); Glucose Random 98 mg/dL (60-115); HCG Quantitative < 2 mIU/mL; HDL Cholesterol 49 mg/dL; Potassium 4.4 mmol/L (3.3-5.1); Sodium 140 mmol/L (135-145); Total Protein 7.4 g/dL (6.5-8.0)
[2022-06-09 10:32] LABS: Glucose 1 Hour 93 mg/dL
[2022-06-09 10:33] LABS: Glucose 2 Hour 96 mg/dL
[2022-06-09 16:00] LABS: LDL Cholesterol Calculated 153 mg/dl; Triglycerides 67 mg/dL
[2022-06-11 04:43] LABS: LDL Cholesterol Direct 134 mg/dL (<100)
[2022-06-11 06:08] LABS: Follicle Stimulating Hormone 5.5 mIU/mL; Lutenizing Hormone 4.5 mIU/mL; Prolactin 11.4 ng/mL; Sex Hormone Binding Globulin 24 nmol/L (17-124)
[2022-06-12 16:38] LABS: DHEA Sulfate 361 mcg/dL (14-349)
[2022-06-15 05:38] LABS: Adrenocorticotropic Hormone 14 pg/mL (6-50)
[2022-06-15 23:04] LABS: Estradiol Ultra Sensitive 31 pg/mL
[2022-06-16 13:14] LABS: Testosterone, Free 3.6 pg/mL (0.1-6.4); Testosterone, Total 20 ng/dL (2-45)
[2022-06-25 02:24] LABS: Androstenedione 139 ng/dL
== END 2022-06-09 07:36 | disposition home or self-care (01) ==
LOC: HO.LAB 07:35
PROVIDERS: PCP Internal Medicine; Visit Provider Internal Medicine
DX: L68.0 Hirsutism (principal)
CPT/HCPCS: 36415; 80053; 80061; 82024; 82157; 82533; 82627; 82670; 83001; 83002; 83036; 83498; 83721; 84146; 84270; 84402; 84403; 84439; 84702

== ENCOUNTER → 2022-06-13 09:56 | Outpatient (BNVA) | payer OTHER, SELFPAY | PROVIDERS: PCP Internal Medicine; Visit Provider Internal Medicine ==

== ENCOUNTER 2022-07-05 15:39 | Outpatient (REF) | payer OTHER, SELFPAY ==
--- NOTE | ~2022-07-05 | US_ITS ---
EXAMINATION: US PELVIS CLINICAL INFORMATION: Ovarian dysfunction. COMPARISON: None available. TECHNIQUE: Ultrasound of the pelvis is performed using both transabdominal and transvaginal transducers along with Doppler. Transvaginal imaging is performed due to inadequate visualization transabdominally. FINDINGS: UTERUS: The uterus is anteverted and measures 6.7 x 3.7 x 4.9 cm. An IUD is present in the endometrial cavity in good position. The double wall endometrial thickness could not be measured secondary to the IUD. The uterus is smooth in contour and has normal myometrial echogenicity. No visible fibroid. ADNEXA: Both ovaries are visualized. There is normal color flow to the adnexa. There is no ovarian torsion. There is no pelvic ascites or fluid collection. Right ovary measures 2.6 x 1.3 x 1.5 cm for a volume of 2.7 mL and appears unremarkable. Left ovary measures 3.3 x 1.3 x 1.7 cm for a volume of 3.8 mL which includes a 1.7 x 0.8 x 1.3 cm benign cyst. No free fluid present in the cul-de-sac. US/US pelvic and transvaginal IMPRESSION: 1. Normal-appearing uterus with IUD in good position. 2. Benign left ovarian cyst needs no additional imaging or follow-up.
== END 2022-07-05 15:40 | disposition home or self-care (01) ==
LOC: HO.US 15:39
PROVIDERS: PCP Internal Medicine; Visit Provider Internal Medicine
DX: E28.8 Other ovarian dysfunction (principal)
CPT/HCPCS: 76830; 76856

== ENCOUNTER 2022-07-10 08:32 | Outpatient (REF) | payer OTHER, SELFPAY ==
--- NOTE | ~2022-07-10 | CT_ITS ---
EXAMINATION: CT ABDOMEN WITHOUT AND WITH CONTRAST/ADRENAL PROTOCOL CLINICAL INFORMATION: Adrenal lesion. COMPARISON: None available. TECHNIQUE: Contiguous axial thin section helical images of the abdomen were performed before and after the administration of oral contrast and 85 mL of Omnipaque 350 intravenous contrast. The data set was reformatted in the coronal and sagittal planes and reviewed on an independent workstation. This CT examination was performed using dose optimization techniques as appropriate, variously including the following: *Automated exposure control *Adjustment of mA and/or kV according to patient size (this includes techniques or standardized protocols for targeted exams where dose is matched to indication/reason for exam; i.e. extremities or head) *Use of iterative reconstruction technique DLP: 329 mGy-cm FINDINGS: LUNG BASES: The lung bases are clear. Heart size is normal. LIVER, GALLBLADDER, AND BILIARY TREE: The liver is homogeneous in density, normal size and contour. No focal enhancing lesion seen. There is no intrahepatic ductal dilatation. Gallbladder is contracted and appears unremarkable. PANCREAS: The pancreas is homogeneous in density and normal size. The peripancreatic fat borders are preserved. There is a punctate hypodensity along the anterior pancreas midbody measuring 3 mm axial image 28/7 likely tiny cyst or prominent acini. SPLEEN: The spleen is normal size and density. ADRENAL GLANDS AND KIDNEYS: Bilateral adrenal glands are symmetric and normal. No focal mass or or nodule seen to suspect any underlying lesion. Both kidneys are normal size, shape and position. There are bilateral extrarenal kidney pelves. No radiopaque renal calculi seen. BOWEL LOOPS: There is scattered stool and gas seen throughout the colon without any significant distention. The small bowel loops are normal caliber. Appendix is not included in the [id number]. LYMPH NODES: Normal. VASCULAR: Unremarkable. BONES: No aggressive lytic or sclerotic process seen. The paravertebral soft tissues are normal. CT/CT abdomen wo/w IV con IMPRESSION: No adrenal mass. Moderate constipation. Fleischner guidelines were followed.
[2022-07-10] MEDS: iohexoL 350 MG/ML 100 ML INFUS..BTL IV (09:33)
== END 2022-07-10 08:33 | disposition home or self-care (01) ==
LOC: HO.CT 08:32
PROVIDERS: PCP Internal Medicine; Visit Provider Internal Medicine
DX: E28.8 Other ovarian dysfunction (principal)
CPT/HCPCS: 74170; Q9967

== ENCOUNTER 2022-08-07 08:53 | Outpatient (REF) | payer OTHER, SELFPAY ==
[2022-08-07 16:10] LABS: CT PCR NOT DETECTED (Not Detect.); NG PCR NOT DETECTED (Not Detect.)
[2022-08-08 09:44] LABS: BV Int Neg Control Negative (Negative); BV Int Pos Control Positive (Positive)
[2022-09-01 07:19] LABS: HPV 16 RNA NOT DETECTED (NOT DETECTED); HPV mRNA E6/E7 rflx Detected (Not Detected)
== END 2022-08-07 08:54 | disposition home or self-care (01) ==
LOC: HO.LNP 08:53
PROVIDERS: PCP Internal Medicine; Visit Provider Advanced Practice Midwife
DX: Z01.419 Encounter for gynecological examination (general) (routine) without abnormal findings (principal); Z20.2 Contact with and (suspected) exposure to infections with a predominantly sexual mode of transmission; N87.0 Mild cervical dysplasia; Z97.5 Presence of (intrauterine) contraceptive device
CPT/HCPCS: 0353U; 87480; 87510; 87624; 87625; 87660; 88142

== ENCOUNTER 2022-09-12 16:23 | Outpatient (AMB) | payer BC, SELFPAY ==
--- NOTE | 2022-09-12 16:24 | A.OFFPC_ITS ---
Vital Signs 09/12/22 16:25 Height 5 ft 3 in Weight 154 lb BMI 27.3 BP 108/72 Blood Pressure Location Lt brachial Position Sitting Pulse 77 Pulse Source Pulse Oximeter Temp Source Skin Pulse Oximetry (%) 99 Oxygen Delivery Method Room Air Intake Visit Reasons: Physical Exam Intake Note: Patient is here today for a physical. 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 Allergies shellfish derived [SHELLFISH DERIVED] Allergy (Unknown, Verified 09/12/22 16:35) ANAPHYLAXIS Medication List - Last Reconciled 09/12/22 by DAVIE Hernandez cetirizine 10 mg PO DAILY PRN cholecalciferol (vitamin D3) 50 mcg PO DAILY 30 days hydrocortisone 2.5% 1 appl topical BID PRN levonorgestrel (Liletta) intrauterine misoprostol 200 mcg vaginal ONCE montelukast 10 mg PO BEDTIME Ventolin HFA 90 mcg/actuation (albuterol sulfate) 2 puffs inhalation Q6H PRN 30 days NS Tobacco use date assessed: 09/12/22 Dental Screening Dental Screen Date: 09/12/22 Did you have a dental visit in the last 12 months?: No Did you have a dental problem in the last 6 months where you did not have access to dental care?: No HPI Physical Exam HPI Details Patient is a 27-year-old female who presents today for physical exam. Patient was previously seen by Dr. Mathews, patient would like to transfer of care. Medical history significant for history of thyroidectomy - left, elevated LFTs - was seen by GI in the past - lost contact - will refer, eczema, anxiety, depression, panic disorder, hyperandrogenism - followed by [facility], nicotine dependence. Tdap 09/18/2007, patient will check with [employer] if she had vaccine in 2018. Patient reports smoking 1 pack of cigarettes in 4 days, interested in smoking cessation, would like to try nicotine gum. Patient did have eye exam in 2022. Patient reports that in the past she did see therapist, stopped seeinf therapist, would like to have a referral. Pap smear 07/2022 which showed ASC-US and HPV positive with [facility], plan to have colposcopy 10/2022. In addition, patient reports right buttock skin lump for very long time now, no pain. Patient has requested refill on hydrocortisone cream for abdominal skin itching which is intermittent, has history of eczema. No shortness of breath or chest pain. Patient reports intermittent right upper quadrant pain, reports intermittent acid reflux which is stable with diet changes. 06/2022 CT/CT abdomen wo/w IV con IMPRESSION: No adrenal mass. Moderate constipation. LIVER, GALLBLADDER, AND BILIARY TREE: The liver is homogeneous in density, normal size and contour. No focal enhancing lesion seen. There is no intrahepatic ductal dilatation. Gallbladder is contracted and appears unremarkable. PANCREAS: The pancreas is homogeneous in density and normal size. The peripancreatic fat borders are preserved. There is a punctate hypodensity along the anterior pancreas midbody measuring 3 mm axial image 28/7 likely tiny cyst or prominent acini. [facility] Medical History Asthma Diarrhea Elevated LFTs Generalized anxiety disorder Hirsutism Hyperandrogenism Multinodular thyroid Nail fungus Remove/insert IUD Transaminitis Vaccine reaction Vitamin D deficiency Surgical History History of root canal procedure Hx of thyroidectomy Family History Mother Asthma High blood pressure Father Diabetes Affective bipolar disorder Mental health disorder Social History Household Members: Family Housing: House Alcohol intake: current Alcohol intake frequency: holidays/special occasions only Patient Tobacco Use Status: Current everyday Tobacco user Tobacco use type: Cigarette Cigarettes Per Day: 5 e-Cigarette/Vaping Use: Never Used Second Hand Smoke Exposure: Yes Substance Use Type: Marijuana service: No Current occupational status: employed Gender identity: Female Cognitive needs: No Hearing needs: No Vision needs: No Female Reproductive History Menstrual Age of Menarche: 12 Questionnaire PHQ-9 Over the last 2 weeks, how often have you been bothered by any of the following problems? 1. Little interest or pleasure in doing things: not at all 2. Feeling down, depressed, or hopeless: not at all 3. Trouble falling or staying asleep, or sleeping too much: not at all 4. Feeling tired or having little energy: not at all 5. Poor appetite or overeating: not at all 6. Feeling bad about yourself - or that you are a failure or have let yourself or your family down: not at all 7. Trouble concentrating on things, such as reading the newspaper or watching television: not at all 8. Moving or speaking so slowly that other people could have noticed. Or the opposite - being so fidgety or restless that you have been moving around a lot more than usual: not at all 9. Thoughts that you would be better off or of hurting yourself in some way: not at all Total score: 0 Depression Screening Interpretation: Negative 04167 - PHQ-9 Billing: Yes Source: Developed by Drs. Kwame Malik, Deniz Abrams and colleagues, with an educational sruthi from [employer]. Thrive Questionnaire Date Thrive assessed: 09/12/22 I am a: Patient What is your living situation today?: I have a steady place to live Within the past 12 months, did the food you bought not last and you didn't have the money to get more?: Never true Within the past 12 months, did you worry whether your food would run out before you got money to buy more?: Never true Currently or been in a relationship where the following occur: no concerns reported AUDIT C Alcohol Use Questionnaire (AUDIT-C) 1. How often do you have a drink containing alcohol?: Never 3. How often do you have six or more drinks on one occasion?: Never Total Score: 0 Score Reviewed/Action Taken: No AKSHAT-7 AMB Questionnaire AKSHAT-7 Date AKSHAT - 7 assessed: 09/12/22 Feeling nervous, anxious, or on edge: 0 = Not at all Not being able to stop or control worryin = Not at all Worrying too much about different things: 0 = Not at all Trouble relaxin = Not at all Being so restless that it is hard to sit still: 0 = Not at all Becoming easily annoyed or irritable: 0 = Not at all Feeling afraid as if something awful might happen: 0 = Not at all Total AKSHAT-7 score (0-4 normal; 5-9 mild; 10-14 moderate; 15-21 severe): 0 Source: Developed by Drs. Kwame Malik, Deniz Abrams and colleagues, with an educational sruthi from [employer]. AKSHAT-7 Assessment Billing AKSHAT-7 Assessment Tool: AKSHAT-7 Assessment 07187 Review of Systems Const Denies body aches, Denies chills, Denies fever(s) and Denies headache(s) Eyes Denies change in vision ENT Denies dizziness, Denies otalgia, Denies headache(s), Denies nasal discharge, Denies sinus pain and Denies sore throat Card Denies chest pain, Denies edema, Denies lightheadedness and Denies dyspnea Resp Denies cough, Denies dyspnea and Denies wheezing GI Reports as per HPI, Reports abdominal pain (Intermittent), Reports constipation (Intermittent), Reports heartburn (Intermittent), Denies diarrhea, Denies nausea and Denies vomiting Denies dysuria Musc Denies myalgias Skin/Breast Details: Right buttock lump Denies rash Neuro Denies dizziness and Denies headache(s) Aller/Immun Denies wheezing Physical exam (Primary Care) Vital Signs: Last Vital Signs Pulse 77 09/12/22 16:25 BP 108/72 09/12/22 16:25 Pulse Ox 99 09/12/22 16:25 Oxygen Delivery Method Room Air 09/12/22 16:25 BMI result Body Mass Index 27.3 Tobacco/Smoking Status: Tobacco use Status Tobacco use date assessed 09/12/22 09/12/22 16:33 Patient Tobacco Use Status Current everyday Tobacco 09/12/22 16:33 Tobacco use type Cigarette 09/12/22 16:33 e-Cigarette/Vaping Use Never Used 09/12/22 16:33 PHQ-9: PHQ-9 Score PHQ-9: Total score 0 09/12/22 16:33 Depression Screening Interpretation: Negative Thrive Assessment: Date of Thrive Assessment Date Thrive assessed 09/12/22 09/12/22 16:33 Currently or been in a relationship where the following occur: no concerns reported Const General: cooperative and no acute distress Orientation/consciousness: patient oriented x3 HENMT Head: Yes normocephalic and Yes atraumatic Ears: TM's normal bilaterally Face and sinus: Yes sinuses nontender Mouth: oropharynx normal and moist mucous membranes Throat: Yes posterior oropharynx normal Eyes General: appearance normal, both eyes and all related structures Pupils: Equal, round and reactive pupils present EOM: EOMs intact bilaterally Neck Neck: Yes normal visual inspection, Yes full ROM and Yes no lymphadenopathy Thyroid: Thyroid normal Resp Effort & Inspection: normal respiratory effort and able to speak in complete sentences Auscultation: clear to auscultation bilaterally, no crackles, no rales, no rhonchi and no wheezes Cardio Rate: regular rate Rhythm: regular rhythm Heart sounds: S1 normal heart sound present, S2 normal heart sound present and no murmurs GI Inspection: Yes normal to inspection Palpation (GI): Soft to palpation, not firm, nontender, no guarding, not rigid and no hepatosplenomegaly Auscultation: normal bowel sounds General: No CVA tenderness Back/Spine/Pelvis Back: No CVA tenderness Skin General skin exam: no rashes or lesions noted Full body images: 1. Right buttock nontender soft lump about 1cm in diameter, skin is intact Neuro General: patient oriented x3 Cranial nerves: Yes Equal, round and reactive pupils present Gait exam (Neuro): Normal gait present Extrem General: Yes full ROM and No edema Assessment and Plan Assessment & Plan (1) Lump of skin: Code(s): R22.9 - Localized swelling, mass and lump, unspecified Plan: Right buttock nontender soft lump about 1cm in diameter, skin is intact Question possible lipoma Will obtain ultrasound (2) Nicotine dependence: Code(s): F17.200 - Nicotine dependence, unspecified, uncomplicated Plan: Start nicotine gum p.r.n. (3) Adult general medical exam: Code(s): Z00.00 - Encounter for general adult medical examination without abnormal findings Plan: Blood work ordered, patient requested TB test for work (4) Depression: Code(s): F32.9 - Major depressive disorder, single episode, unspecified Qualifiers: Depression Type: other depression Qualified Code(s): F32.89 - Other specified depressive episodes Plan: Counseling referral (5) Generalized anxiety disorder: Code(s): F41.1 - Generalized anxiety disorder Plan: Counseling referral (6) Eczema: Code(s): L30.9 - Dermatitis, unspecified Qualifiers: Eczema type: unspecified Qualified Code(s): L30.9 - Dermatitis, unspecified Plan: Patient reports intermittent rash on her abdomen, refill sent for hydrocortisone cream p.r.n. (7) Elevated LFTs: Code(s): R79.89 - Other specified abnormal findings of blood chemistry Plan: Will repeat hepatitis panel and CMP - will refer back to GI for an evaluation and treatment LFTs elevated since 2020 Patient denies Tylenol or alcohol consumption 06/2022 CT/CT abdomen wo/w IV con IMPRESSION: No adrenal mass. ? Moderate constipation. Plan Patient reports that she was sick with COVID last week, denies symptoms, reports intermittent cough, which does not bother her much Orders: Orders Vitamin D 25-OH Total Today Z00.00 - Encounter for general adult medical ex amination without abnormal findings Vitamin B12 and Folate Today Z00.00 - Encounter for general adult medical examination without abnormal findings Comprehensive Met. Panel Today Z00.00 - Encounter for general adult medical examination without abnormal findings Complete Blood Count Auto Diff Today Z00.00 - Encounter for general adult medical examination without abnormal findings Hepatitis A,B,C Profile Today R79.89 - Other specified abnormal findings of blood chemistry T Spot TB Today Z00.00 - Encounter for general adult medical examination without abnormal findings US extremity nonvascular Today R22.9 - Localized swelling, mass and lump, unspecified Referrals Counseling Referral F32.9 - Major depressive disorder, single episode, unspecified, F41.0 - Panic disorder [episodic paroxysmal anxiety], F41.1 - Generalized anxiety disorder Gastroenterology Referral R79.89 - Other specified abnormal findings of blood chemistry Medications: New nicotine (polacrilex) 2 mg buccal Q2H PRN 120 ea 0RF nicotine cravings F17.200 - Nicotine dependence, unspecified, uncomplicated Refilled hydrocortisone 2.5% 1 appl topical BID PRN 20 grams 0RF skin irritation Discontinued cholecalciferol (vitamin D3) Discontinued Reason: Patient no longer taking 50 mcg PO DAILY 30 days 30 caps 0RF E55.9 - Vitamin D deficiency, unspecified Coding Level of Care Code Est Pt Prev Care 18-39y(47425) Diagnoses Lump of skin R22.9 Nicotine dependence F17.200 Adult general medical exam Z00.00 Depression F32.89 Depression Type: other depression Generalized anxiety disorder F41.1 Eczema L30.9 Eczema type: unspecified Elevated LFTs R79.89 Additional Codes AKSHAT-7 Assessment Billing - AKSHAT-7 Assessment Tool: AKSHAT-7 Assessment 92439 ([id number])
[2022-09-12 16:25] VITALS: BP 108/72; PULSE 77; O2SAT 99; BMI 27.3
== END 2022-09-12 17:12 | disposition home or self-care (01) ==
PROVIDERS: PCP Internal Medicine; Visit Provider Nurse Practitioner Family
DX: Z00.00 Encounter for general adult medical examination without abnormal findings (principal); R22.9 Localized swelling, mass and lump, unspecified; F17.210 Nicotine dependence, cigarettes, uncomplicated; F32.89 Other specified depressive episodes; F41.1 Generalized anxiety disorder; L30.9 Dermatitis, unspecified; R79.89 Other specified abnormal findings of blood chemistry
CPT/HCPCS: 99395

== ENCOUNTER → 2022-09-13 14:24 | Outpatient (BNVA) | payer BC, SELFPAY | PROVIDERS: PCP Internal Medicine; Visit Provider Advanced Practice Midwife ==

== ENCOUNTER 2022-09-24 16:23 | Outpatient (REF) | payer BC, SELFPAY ==
--- NOTE | ~2022-09-24 | US_ITS ---
EXAMINATION: US SOFT TISSUES BUTTOCK, RIGHT CLINICAL INFORMATION: Right buttock focal swelling, mass and palpable lump. COMPARISON: None. TECHNIQUE: Using a linear array transducer with grayscale and color modalities, ultrasound examination is performed of the right buttock region. FINDINGS: Corresponding with the palpable finding, a 1.5 x 0.6 x 1.4 cm hypoechoic, circumscribed mass is seen. This shows slight increase in through-sound transmission and little associated color Doppler flow. No fluid collection is seen. There is no lymphadenopathy. No foreign body is seen. US/US extremity nonvascular IMPRESSION: Corresponding with the palpable finding in the right buttock region, a 1.5 cm in maximal diameter hypoechoic, circumscribed subcutaneous mass is seen. The possibility of a lipoma is raised; the exact etiology is indeterminate. If of continued clinical concern, this can be further evaluated with MRI.
[2022-09-24 17:00] LABS: MANUAL DIFF FLAG NO
[2022-09-24 19:03] LABS: Basophils Absolute Auto 0.1 X10*3/uL (0.0-0.2); Basophils Percent Auto 0.5 % (0-2); Eosinophils Absolute Auto 0.5 X10*3/uL (0.0-0.4); Eosinophils Percent Auto 5.7 % (0-4); Hematocrit 34.3 % (37.0-47.0); Hemoglobin 12.6 g/dl (12.0-16.0); Imm Gran Abs Auto 0.02 X10*3/uL (0.00-0.03); Imm Gran Pct Auto 0.2 % (0.0-0.4); Lymphocytes Absolute Auto 3.1 X10*3/uL (1.2-4.9); Lymphocytes Percent Auto 33.6 % (20-40); Mean Corpuscular HGB Conc 36.7 g/dl (31.0-35.0); Mean Corpuscular Hemoglobin 33.2 pg (27.0-33.0); Mean Corpuscular Volume 90.5 fL (80.0-98.0); Mean Platelet Volume 10.1 fL (9.4-12.3); Monocytes Absolute Auto 0.8 X10*3/uL (0.1-1.2); Monocytes Percent Auto 8.6 % (2-11); Neutrophils Absolute Auto 4.7 x10*3/uL (2.0-8.3); Neutrophils Percent Auto 51.4 % (45-73); Platelet Count 337 X10*3/uL (160-400); Red Blood Count 3.79 X10*6/uL (4.20-5.50); Red Cell Distribution Width 13.2 % (11.0-16.0); White Blood Count 9.1 X10*3/uL (4.8-10.8)
[2022-09-25 02:37] LABS: Alanine Aminotransferase 70 U/L (0-31); Albumin Level 4.2 g/dL (3.5-5.0); Alkaline Phosphatase 82 U/L (39-117); Anion Gap 11 (12-20); Aspartate Amino Transferase 37 U/L (5-31); Bilirubin Total 0.3 mg/dL (0.0-1.0); Blood Urea Nitrogen 10 mg/dL (9-16); Calcium 8.6 mg/dL (8.4-10.2); Carbon Dioxide 24 mmol/L (22-29); Chloride 105 mmol/L (96-108); Estimated Glomerular Filt Rate > 60; Glucose Random 73 mg/dL (60-115); Potassium 3.5 mmol/L (3.3-5.1); Sodium 136 mmol/L (135-145); Total Protein 7.3 g/dL (6.5-8.0); Vitamin D 25-OH Total 25.8 ng/mL (>30)
[2022-09-25 02:46] LABS: Folate 4.8 ng/mL (> or = 4.0); Vitamin B12 323 pg/mL (200-900)
[2022-09-25 05:05] LABS: HBsAGNum1 0.42 S/CO (0.00-0.99); Hepatitis A Antibody IgM 0.16 Index (0-0.79); Hepatitis B Core Antibody Nonreactive (Nonreactive); Hepatitis B Surface Antigen Negative (Negative); ~HepC Num1 0.08 S/CO (0.00-0.79); ~Hepatitis A Antibody IgM Nonreactive (Nonreactive); ~Hepatitis B Surface Antibody REACTIVE (Nonreactive); ~Hepatitis C Antibody Nonreactive (Nonreactive)
[2022-09-27 21:13] LABS: TS Negative Control Passed; TS Panel A 0; TS Panel B 0; TS Positive Control Passed; TSpotTB Negative (Negative)
== END 2022-09-24 16:24 | disposition home or self-care (01) ==
LOC: HO.US 16:23
PROVIDERS: PCP Nurse Practitioner Family; Visit Provider Nurse Practitioner Family
DX: R22.9 Localized swelling, mass and lump, unspecified (principal); R79.89 Other specified abnormal findings of blood chemistry; Z00.00 Encounter for general adult medical examination without abnormal findings; Z11.1 Encounter for screening for respiratory tuberculosis; E55.9 Vitamin D deficiency, unspecified
CPT/HCPCS: 36415; 76882; 80053; 82306; 82607; 82746; 85025; 86481; 86704; 86706; 86709; 86803; 87340

== ENCOUNTER 2022-10-30 11:53 | Outpatient (REF) | payer BC, SELFPAY | END 2022-10-30 11:54 | disposition home or self-care (01) | LOC: HO.LNP 11:53 | PROVIDERS: PCP Internal Medicine; Visit Provider Obstetrics & Gynecology | DX: R87.610 Atypical squamous cells of undetermined significance on cytologic smear of cervix (ASC-US) (principal); R87.810 Cervical high risk human papillomavirus (HPV) DNA test positive | CPT/HCPCS: 57454; 88305 ==

== ENCOUNTER 2022-10-30 11:53 | Outpatient (AMB) | payer BC, SELFPAY ==
[2022-10-30 12:07] VITALS: BP 118/70; BMI 28.2
--- NOTE | 2022-10-30 12:07 | A.OFFVIS_ITS ---
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 (Hyun) Allergies shellfish derived [SHELLFISH DERIVED] Allergy (Unknown, Verified 10/30/22 12:08) ANAPHYLAXIS Post menopausal: No Patient : No PFSH Medical History Hyperandrogenism Hirsutism Diarrhea Generalized anxiety disorder Asthma Elevated LFTs Transaminitis Vitamin D deficiency Multinodular thyroid Remove/insert IUD Nail fungus Vaccine reaction Surgical History History of root canal procedure Hx of thyroidectomy Family History Mother Asthma High blood pressure Father Diabetes Affective bipolar disorder Mental health disorder Social History Household Members: Family Housing: House Alcohol intake: current Alcohol intake frequency: holidays/special occasions only Patient Tobacco Use Status: Current everyday Tobacco user Tobacco use type: Cigarette Cigarettes Per Day: 5 e-Cigarette/Vaping Use: Never Used Second Hand Smoke Exposure: Yes Substance Use Type: Marijuana Patient : No service: No Current occupational status: employed Gender identity: Female Cognitive needs: No Hearing needs: No Vision needs: No Female Reproductive History Menstrual Age of Menarche: 12 Date of last pap smear: 08/08/22 (ASCUS +HPV) Physical Exam Vital Signs: Last Vital Signs BP 118/70 10/30/22 12:07 BMI result Body Mass Index 28.2 Office Procedures Colposcopy Before the procedure was started discussed with the patient the procedure, alternatives & all the risks associated with the procedure (bleeding, infection, injury to vagina, bladder, vessels, possible need for transfusion with all its risks) then patient signed the consent Pap smear = ascus HPV positive Urine test done in the office was negative Speculum inserted, acetic acid used Colposcopy done Transformation zone seen, acetowhite lesions identified at 2+3+5 o?clock, cervical biopsies taken from 2+3+5 o?clock, ECC done afterwards. Vaginoscopy of the upper vagina showed no evidence of any aceto-white lesions Monsel solution used for hemostasis. The patient tolerated well . At the end the patient was instructed to call if temp>100.4, abdominal pain, n/v, bleeding; The patient was given the following instructions: nothing per vagina, no intercourse or bath tub use. All questions answered the patient verbalized understanding. Instructed the patient to make an appointment in 2 weeks for follow-up This note was generated with a voice recognition program. Some errors may have been overlooked during the review of this note. Sometimes these errors may affect the content or meaning of a given sentence. [id number] of cervix including upper vagina with biopsy and ECC Procedure code (CPT) selection complete Assessment & Plan Assessment & Plan Orders: Orders AMB Colposcopy Today R87.610 - Atypical squamous cells of undetermined signifi cance on cytologic smear of cervix (ASC-US), R87.810 - Cervical high risk human papillomavirus (HPV) DNA test positive Coding Level of Care Code Procedure Only CPT Codes Colposcopy - CPT: 95965-[id number] of cervix including upper vagina with biopsy and ECC ([id number])
== END 2022-10-30 12:33 | disposition home or self-care (01) ==
PROVIDERS: PCP Internal Medicine; Visit Provider Obstetrics & Gynecology
DX: R87.610 Atypical squamous cells of undetermined significance on cytologic smear of cervix (ASC-US) (principal); R87.810 Cervical high risk human papillomavirus (HPV) DNA test positive
CPT/HCPCS: 57454

== ENCOUNTER 2022-11-29 07:38 | Outpatient (AMB) | payer BC, SELFPAY ==
--- NOTE | 2022-11-29 07:40 | MHC.OFFVIS ---
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 The patient is doing well with no complaints. The pathology showed the following: A. Endocervix, curettage: Superficial fragments of endocervical epithelium with patchy squamous metaplasia and squamous mucosa with reactive changes; mucoinflammatory material. B. Cervix, 2 o'clock, biopsy: - Squamous mucosa within normal limits. - Scant strips of endocervical epithelium within normal limits. C. Cervix, 3 o'clock, biopsy: - Squamous mucosa within normal limits. - No endocervical epithelium identified. D. Cervix, 5 o'clock, biopsy: Inflamed cervical transformation zone mucosa with reactive changes. [facility] Medical History Hyperandrogenism Hirsutism Diarrhea Generalized anxiety disorder Asthma Elevated LFTs Transaminitis Vitamin D deficiency Multinodular thyroid Remove/insert IUD Nail fungus Vaccine reaction Surgical History History of root canal procedure Hx of thyroidectomy Family History Mother Asthma High blood pressure Father Diabetes Affective bipolar disorder Mental health disorder Social History Household Members: Family Housing: House Alcohol intake: current Alcohol intake frequency: holidays/special occasions only Patient Tobacco Use Status: Current everyday Tobacco user Tobacco use type: Cigarette Cigarettes Per Day: 5 e-Cigarette/Vaping Use: Never Used Second Hand Smoke Exposure: Yes Substance Use Type: Marijuana service: No Current occupational status: employed Gender identity: Female Cognitive needs: No Hearing needs: No Vision needs: No Female Reproductive History Menstrual Age of Menarche: 12 Review of Systems Const All systems reviewed & are unremarkable except as noted in HPI and below Reports as per HPI and Reports no additional complaints GI Reports no additional complaints Reports no additional complaints Assessment & Plan Assessment & Plan (1) ASCUS with positive high risk HPV cervical: Code(s): R87.610 - Atypical squamous cells of undetermined significance on cytologic smear of cervix (ASC-US); R87.810 - Cervical high risk human papillomavirus (HPV) DNA test positive Plan: Discussed with the patient the pathology results of the colposcopy biopsies & endocervical curettage ( negative). Discussed with the patient the sensitivity specificity, positive and negative predictive value in detecting cervical cancer in addition discussed the regression, persistence and progression rates. Recommended co-testing in 12 months, if cytology and or HPV are abnormal will proceed was colposcopy biopsy and endocervical curettage, if lesions gets worse or stays persistent for 2 years will proceed with loop electric excision procedure. Instructions given to the patient to schedule a co test appointment in 1 year. All questions answered the patient verbalized understanding. Coding Level of Care Code Est Pt Level 3 (82886) Diagnoses ASCUS with positive high risk HPV cervical R87.610; R87.810
[2022-11-29 07:42] VITALS: BP 120/72; BMI 28.1
== END 2022-11-29 07:46 | disposition home or self-care (01) ==
PROVIDERS: PCP Internal Medicine; Visit Provider Obstetrics & Gynecology
DX: R87.610 Atypical squamous cells of undetermined significance on cytologic smear of cervix (ASC-US) (principal); R87.810 Cervical high risk human papillomavirus (HPV) DNA test positive
CPT/HCPCS: 99213

== ENCOUNTER → 2022-11-29 07:38 | Outpatient (BNVA) | payer BC, SELFPAY | PROVIDERS: PCP Internal Medicine; Visit Provider Obstetrics & Gynecology ==

== ENCOUNTER 2023-06-26 08:17 | Outpatient (AMB) | payer BC, SELFPAY ==
--- NOTE | 2023-06-26 08:19 | A.OFFPC_ITS ---
Vital Signs 06/26/23 08:19 06/26/23 08:20 Height 5 ft 3 in 5 ft 3 in Weight 76.204 kg BMI 29.8 Blood Pressure Location Lt brachial Position Sitting Pulse Source Pulse Oximeter Oxygen Delivery Method Room Air Intake Visit Reasons: Bilateral hand and feet swelling Allergies shellfish derived [SHELLFISH DERIVED] Allergy (Unknown, Verified 06/26/23 08:20) ANAPHYLAXIS Tobacco use date assessed: 06/26/23 Dental Screening Dental Screen Date: 06/26/23 Did you have a dental visit in the last 12 months?: Yes Did you have a dental problem in the last 6 months where you did not have access to dental care?: No Was dental information given to patient?: Patient has dentist [facility] Medical History Hyperandrogenism Hirsutism Diarrhea Generalized anxiety disorder Asthma Elevated LFTs Transaminitis Vitamin D deficiency Multinodular thyroid Remove/insert IUD Nail fungus Vaccine reaction Surgical History History of root canal procedure Hx of thyroidectomy Family History Mother Asthma High blood pressure Father Diabetes Affective bipolar disorder Mental health disorder Social History Household Members: Family Housing: House Alcohol intake: current Alcohol intake frequency: holidays/special occasions only Patient Tobacco Use Status: Current everyday Tobacco user Tobacco use type: Cigarette Cigarettes Per Day: 5 e-Cigarette/Vaping Use: Never Used Second Hand Smoke Exposure: Yes Substance Use Type: Marijuana service: No Current occupational status: employed Gender identity: Female Cognitive needs: No Hearing needs: No Vision needs: No Female Reproductive History Menstrual Age of Menarche: 12 Questionnaire PHQ-9 Over the last 2 weeks, how often have you been bothered by any of the following problems? 1. Little interest or pleasure in doing things: not at all 2. Feeling down, depressed, or hopeless: not at all 3. Trouble falling or staying asleep, or sleeping too much: not at all 4. Feeling tired or having little energy: not at all 5. Poor appetite or overeating: not at all 6. Feeling bad about yourself - or that you are a failure or have let yourself or your family down: not at all 7. Trouble concentrating on things, such as reading the newspaper or watching television: not at all 8. Moving or speaking so slowly that other people could have noticed. Or the opposite - being so fidgety or restless that you have been moving around a lot more than usual: not at all 9. Thoughts that you would be better off or of hurting yourself in some way: not at all Total score: 0 Depression Screening Interpretation: Negative Depression Screening Done: Yes 46893 - PHQ-9 Billing: Yes Source: Developed by Drs. Kwame Malik, Jazmine Smith, Deniz Orozco and colleagues, with an educational sruthi from [employer]. Thrive Questionnaire Date Thrive assessed: 06/26/23 I am a: Patient What is your living situation today?: I have a steady place to live Within the past 12 months, did the food you bought not last and you didn't have the money to get more?: Never true Within the past 12 months, did you worry whether your food would run out before you got money to buy more?: Never true Do you have trouble paying for medicines?: No Do you have trouble getting transportation to medical appointments?: No Do you have trouble paying your heating and electricity bill?: No Do you have trouble taking care of your child, family member or friend?: No Do you have trouble with day-to-day activities such as bathing, preparing meals, shopping, managing finances, etc.?: No Are you currently unemployed and looking for a job?: No Are you interested in more education?: No Currently or been in a relationship where the following occur: no concerns reported THRIVE Score: 0 AUDIT C Alcohol Use Questionnaire (AUDIT-C) 1. How often do you have a drink containing alcohol?: Never 3. How often do you have six or more drinks on one occasion?: Never Total Score: 0 Score Reviewed/Action Taken: No AKSHAT-7 AMB Questionnaire AKSHAT-7 Date AKSHAT - 7 assessed: 06/26/23 Feeling nervous, anxious, or on edge: 0 = Not at all Not being able to stop or control worryin = Not at all Worrying too much about different things: 0 = Not at all Trouble relaxin = Not at all Being so restless that it is hard to sit still: 0 = Not at all Becoming easily annoyed or irritable: 0 = Not at all Feeling afraid as if something awful might happen: 0 = Not at all Total AKSHAT-7 score (0-4 normal; 5-9 mild; 10-14 moderate; 15-21 severe): 0 Source: Developed by Drs. Kwame Malik, Jazmine Smith, Deniz Orozco and colleagues, with an educational sruthi from [employer]. Physical exam (Primary Care) Tobacco/Smoking Status: Tobacco use Status Tobacco use date assessed 09/12/22 01/01/23 14:12 Patient Tobacco Use Status Current everyday Tobacco 01/01/23 14:12 Tobacco use type Cigarette 01/01/23 14:12 e-Cigarette/Vaping Use Never Used 01/01/23 14:12 Depression Screening Interpretation: Negative Thrive Assessment: Date of Thrive Assessment Date Thrive assessed 09/12/22 01/01/23 14:12 Currently or been in a relationship where the following occur: no concerns reported Coding
--- NOTE | 2023-06-26 08:19 | MHC.PC.OV ---
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 Accompanied by: Self / Same As Patient Allergies shellfish derived [SHELLFISH DERIVED] Allergy (Unknown, Verified 06/26/23 09:10) ANAPHYLAXIS Medication List - Last Reconciled 06/26/23 by Shane Mathews MD albuterol sulfate 90 mcg/actuation (Ventolin HFA) 2 puffs inhalation Q6H PRN 30 days cetirizine 10 mg PO DAILY PRN cholecalciferol (vitamin D3) 25 mcg PO DAILY hydrocortisone 2.5% 1 appl topical BID PRN levonorgestrel (Liletta) intrauterine montelukast 10 mg PO BEDTIME Tobacco use date assessed: 06/26/23 Dental Screening Dental Screen Date: 06/26/23 Did you have a dental visit in the last 12 months?: Yes Did you have a dental problem in the last 6 months where you did not have access to dental care?: No Was dental information given to patient?: Patient has dentist HPI Bilateral hand and feet swelling HPI Details 27-year-old female presents to the office for a sick visit. Patient recently traveled to [place] on vacation. On arrival, she started having swelling in her feet and both her hands. The symptoms are present all throughout her vacation. Completely resolved on her returned. Patient wears rings on her fingers and she did not have to remove them. [facility] Medical History Hyperandrogenism Hirsutism Diarrhea Generalized anxiety disorder Asthma Elevated LFTs Transaminitis Vitamin D deficiency Multinodular thyroid Remove/insert IUD Nail fungus Vaccine reaction Surgical History History of root canal procedure Hx of thyroidectomy Family History Mother Asthma High blood pressure Father Diabetes Affective bipolar disorder Mental health disorder Social History Household Members: Family Housing: House Alcohol intake: current Alcohol intake frequency: holidays/special occasions only Patient Tobacco Use Status: Current everyday Tobacco user Tobacco use type: Cigarette Cigarettes Per Day: 4 e-Cigarette/Vaping Use: Never Used Second Hand Smoke Exposure: Yes Substance Use Type: Marijuana service: No Current occupational status: employed Current occupational exposures/hazards: No Gender identity: Female Cognitive needs: No Hearing needs: No Vision needs: Yes Female Reproductive History Menstrual Age of Menarche: 12 Questionnaire Thrive Questionnaire Date Thrive assessed: 09/12/22 AKSHAT-7 AMB Questionnaire AKSHAT-7 Date AKSHAT - 7 assessed: 09/12/22 Source: Developed by Drs. Kwame Malik, Jazmine Smith, Deniz Orozco and colleagues, with an educational sruthi from [employer]. Physical exam (Primary Care) Vital Signs: Last Vital Signs BP 110/62 06/26/23 08:20 BMI result Body Mass Index 29.8 Tobacco/Smoking Status: Tobacco use Status Tobacco use date assessed 06/26/23 06/26/23 08:25 Patient Tobacco Use Status Current everyday Tobacco 06/26/23 08:21 Tobacco use type Cigarette 06/26/23 08:21 e-Cigarette/Vaping Use Never Used 06/26/23 08:21 Thrive Assessment: Date of Thrive Assessment Date Thrive assessed 09/12/22 06/26/23 08:21 Const General: cooperative and healthy appearing Nutritional Appearance: well nourished Orientation/consciousness: patient oriented x3 Limitations: no limitations HENMT Head: Yes normal to inspection Eyes General: appearance normal, both eyes and all related structures Neck Neck: Yes normal visual inspection Chest Chest palpation & inspection: normal palpation of entire chest wall Resp Effort & Inspection: normal respiratory effort Neuro General: patient oriented x3 Extrem Other: Right upper and lower extremity: No pitting edema. No swelling in either extremity. Assessment and Plan Assessment & Plan (1) Edema of both feet: Code(s): R60.0 - Localized edema Plan: Reassurance. Most likely symptoms were due to change in temperature and the heat. As symptoms have completely resolved, no further workup is necessary at the moment. Should symptoms recur, follow-up here. Coding Level of Care Code Est Pt Level 3 (28391) Diagnoses Edema of both feet R60.0
[2023-06-26 08:20] VITALS: BP 110/62; BMI 29.8
== END 2023-06-26 09:46 | disposition home or self-care (01) ==
PROVIDERS: PCP Internal Medicine; Visit Provider Internal Medicine
DX: R60.0 Localized edema (principal)
CPT/HCPCS: 99213

== ENCOUNTER 2023-07-10 14:47 | Outpatient (AMB) | payer BC, SELFPAY ==
[2023-07-10 14:48] VITALS: BP 112/68; PULSE 72; BMI 29.8
--- NOTE | 2023-07-10 14:48 | MHC.OFFVIS ---
Vital Signs 07/10/23 14:48 Height 5 ft 3 in Weight 167 lb 15.876 oz BMI 29.8 BP 112/68 Blood Pressure Location Lt brachial Position Sitting Pulse 72 Pulse Source Pulse Oximeter Intake Visit Reasons: F/U Hyperandrogenism-no vm option Intake Note: Patient present today for Hyperandrogenism follow up visit. Patient previously seen by Dr. Muniz on 06/13/22. 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 She is requesting evaluation for her hirsutism today. The patient last saw Dr. Muniz on 06/13/2022 2) Hirsutism: She reports a 1-2 year history of hirsutism of the chin, cheeks, chest, areolas and abdomen. She reports menses were always regular, but she is now amenorrheic due to her IUD. She has never attempted conception. Full labs were assessed for hyperandrogenism, but unfortunately pending at this time. DHEA-s was elevated. Workup was consistent with polycystic ovarian syndrome 04/14/22 06/09/22 06/09/22 08:46 07:53 07:53 Sodium 140 Potassium 4.4 Creatinine 0.70 Estimated GFR > 60 Hemoglobin A1c % 5.2 Glucose Tolerance 25-OH Vitamin D Total 12.9 TSH 1.20 Free T4 0.89 FSH Luteinizing Hormone Prolactin Sex Hormone Bind Glob DHEA Sulfate Beta HCG, Quant < 2 Random Cortisol 06/09/22 06/09/22 06/09/22 07:53 07:53 07:53 Sodium Potassium Creatinine Estimated GFR Hemoglobin A1c % Glucose Tolerance 25-OH Vitamin D Total TSH Free T4 FSH 5.5 Luteinizing Hormone 4.5 Prolactin 11.4 Sex Hormone Bind Glob 24 DHEA Sulfate 361 H Beta HCG, Quant Random Cortisol 12.6 Currently on IUD Has hair growth on face and chest . No snoring at night . Not attempting . [facility] Medical History Hyperandrogenism Hirsutism Diarrhea Generalized anxiety disorder Asthma Elevated LFTs Transaminitis Vitamin D deficiency Multinodular thyroid Remove/insert IUD Nail fungus Vaccine reaction Surgical History History of root canal procedure Hx of thyroidectomy Family History Mother Asthma High blood pressure Father Diabetes Affective bipolar disorder Mental health disorder Social History Household Members: Family Housing: House Alcohol intake: current Alcohol intake frequency: holidays/special occasions only Patient Tobacco Use Status: Current everyday Tobacco user Tobacco use type: Cigarette Cigarettes Per Day: 4 e-Cigarette/Vaping Use: Never Used Second Hand Smoke Exposure: Yes Substance Use Type: Marijuana service: No Current occupational status: employed Current occupational exposures/hazards: No Gender identity: Female Cognitive needs: No Hearing needs: No Vision needs: Yes Female Reproductive History Menstrual Age of Menarche: 12 Assessment & Plan Assessment & Plan (1) PCOS (polycystic ovarian syndrome): Code(s): E28.2 - Polycystic ovarian syndrome Category: Medical Plan: Is a 27-year-old female history of hirsutism and hyperandrogenism and workup consistent with polycystic ovarian syndrome. 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 We could also talk about the use of spironolactone once she has transition to an estrogen containing control pill particularly if this is not effective in terms of controlling the hirsutism and acne. Lastly, I prescribed a GLP 1/GI P agonist namely Zepbound 2.5 mg Q weekly which would be particularly effective in terms of weight loss and insulin resistance present in this patient would PCOS I might also help her fatty liver. I went over the side effects of Zepbound including but not limited to nausea, vomiting rare risk of pancreatitis. Orders: Referrals Nutrition/Dietitian Referral E28.2 - Polycystic ovarian syndrome Medications: New tirzepatide (weight loss) (Zepbound) 2.5 mg (0.5 mL) subcut QWEEK 4 weeks 2 mL 4RF Coding Level of Care Code Est Pt Level 3 (77157) Diagnoses PCOS (polycystic ovarian syndrome) E28.2
== END 2023-07-10 15:24 | disposition home or self-care (01) ==
PROVIDERS: PCP Internal Medicine; Visit Provider Internal Medicine Endocrinology, Diabetes & Metabolism
DX: E28.2 Polycystic ovarian syndrome (principal)
CPT/HCPCS: 99213

== ENCOUNTER → 2023-07-10 14:47 | Outpatient (BNVA) | payer BC, SELFPAY | PROVIDERS: PCP Internal Medicine; Visit Provider Internal Medicine Endocrinology, Diabetes & Metabolism ==

== ENCOUNTER 2023-07-23 12:23 | Outpatient (AMB) | payer BC, SELFPAY ==
[2023-07-23 12:22] VITALS: BP 122/74; PULSE 106; TEMP 36.6; O2SAT 98; BMI 29.0
--- NOTE | 2023-07-23 12:22 | MHC.OFFWIV ---
Intake Vital Signs 07/23/23 12:22 Height 5 ft 3 in Weight 164 lb BMI 29.0 BP 122/74 Blood Pressure Location Lt brachial Position Sitting Pulse 106 H Pulse Source Pulse Oximeter Temp 97.9 F Temp Source Temporal Artery Scan Pulse Oximetry (%) 98 Oxygen Delivery Method Room Air Intake Visit Reasons: EP Cough, tightness, congestion Intake Note: pt is here today for cough, chest tightness and congestion. Fever, jittery feeling started Saturday 6/8 PM. Rapid Covid negative this morning Patient Tobacco Use Status: Current everyday Tobacco user Allergies shellfish derived [SHELLFISH DERIVED] Allergy (Unknown, Verified 07/23/23 13:01) ANAPHYLAXIS Medication List - Last Reconciled 07/23/23 by DAVIE Morrell albuterol sulfate 90 mcg/actuation (Ventolin HFA) 2 puffs inhalation Q6H PRN 30 days cetirizine 10 mg PO DAILY PRN cholecalciferol (vitamin D3) 25 mcg PO DAILY hydrocortisone 2.5% 1 appl topical BID PRN levonorgestrel (Mirena) intrauterine montelukast 10 mg PO BEDTIME Do you need a note to return to daycare/school/sports/work: Yes HPI HPI Comments History of Present Illness Details Patient is a 27-year-old female in today for a sick visit. Patient reports for past 3 days she has developed symptoms of chest congestion and cough. Does have history of reactive airway disease. Used her albuterol inhaler 20 minutes prior to this appointment. Denies fevers but states she has had chills. Reports 1 sick contact. Denies chest pain, shortness a breath, dyspnea on exertion, nausea, vomiting, diarrhea Will obtain URI swab in office today. [facility] Medical History Hyperandrogenism Hirsutism Diarrhea Generalized anxiety disorder Asthma Elevated LFTs Transaminitis Vitamin D deficiency Multinodular thyroid Remove/insert IUD Nail fungus Vaccine reaction Surgical History History of root canal procedure Hx of thyroidectomy Family History Mother Asthma High blood pressure Father Diabetes Affective bipolar disorder Mental health disorder Social History Household Members: Family Housing: House Alcohol intake: current Alcohol intake frequency: holidays/special occasions only Patient Tobacco Use Status: Current everyday Tobacco user Tobacco use type: Cigarette Cigarettes Per Day: 4 e-Cigarette/Vaping Use: Never Used Second Hand Smoke Exposure: Yes Substance Use Type: Marijuana service: No Current occupational status: employed Current occupational exposures/hazards: No Gender identity: Female Cognitive needs: No Hearing needs: No Vision needs: Yes Female Reproductive History Menstrual Age of Menarche: 12 Review of Systems Const All systems reviewed & are unremarkable except as noted in HPI and below Physical Exam Vital Signs: Last Vital Signs Temp 97.9 F 07/23/23 12:22 Pulse 106 H 07/23/23 12:22 BP 122/74 07/23/23 12:22 Pulse Ox 98 07/23/23 12:22 Oxygen Delivery Method Room Air 07/23/23 12:22 BMI result Body Mass Index 29.0 Const Other: Appearance: Alert.? Oriented X3.? No acute distress.? Head: Normocephalic. ENT: Pharynx erythema, +post nasal drip. ? CVS: Normal heart rate and rhythm.? Pulses normal.? Respiratory: No respiratory distress.? Bilateral wheeze upper lobes. Neuro: Oriented X 3.? Assessment & Plan Assessment & Plan (1) Upper respiratory infection: Comment: Patient had URI swab in office will return with results. Patient will be given prednisone to be taken as prescribed. She has also been educated to avoid smoking as it may exacerbate the problem. Patient took albuterol 20 minutes prior to this appointment. She can continue utilizing albuterol as needed and as prescribed. Patient will be given Symbicort inhaler she can initiate this when prednisone course has been completed. Patient has been given work note for 2 days. She has been educated on signs of worsening symptoms and when to report back to the walk-in or when to present to the ED. Code(s): J06.9 - Acute upper respiratory infection, unspecified Qualifiers: URI type: unspecified URI Qualified Code(s): J06.9 - Acute upper respiratory infection, unspecified Plan: Take your medications as prescribed. If you were prescribed antibiotics today, it is important that you take your medication to their entirety, do not skip any doses, do not finish them early. Follow-up with your primary care provider this week. Return to the emergency department with new or worsening symptoms. Such as fevers, chills, chest pain, shortness of breath, nausea, vomiting, dizziness, headache, vision changes, lethargy In case of emergency call 911 Plan follow up with PCP. Orders: Orders SARS-CoV2/FLU/RSV 07/23/23 J06.9 - Acute upper respiratory infection, unspecified Medications: New budesonide-formoterol 160-4.5 mcg/actuation (Symbicort) 2 puffs inhalation Q12H 10.2 grams 0RF prednisone 40 mg (2 x 20 mg) PO DAILY 10 tabs 0RF Coding Level of Care Code Est Pt Level 3 (01605) Diagnoses Upper respiratory tract infection, unspecified type J06.9 URI type: unspecified URI Time Spent (min) 26
== END 2023-07-23 13:13 | disposition home or self-care (01) ==
PROVIDERS: PCP Internal Medicine; Visit Provider Nurse Practitioner Primary Care
DX: J06.9 Acute upper respiratory infection, unspecified (principal)
CPT/HCPCS: 99213

== ENCOUNTER 2023-07-23 16:52 | Outpatient (REF) | payer BC, SELFPAY ==
[2023-07-23 17:48] LABS: Influenza A PCR NEGATIVE (Negative); Influenza B PCR NEGATIVE (Negative); Resp Syncy Virus RNA Qual PCR NEGATIVE (Negative); SARS COV2 PCR INHOUSE NEGATIVE (Negative)
== END 2023-07-23 16:53 | disposition home or self-care (01) ==
LOC: HO.HHCLNP 16:52
PROVIDERS: Visit Provider Nurse Practitioner Primary Care
DX: J06.9 Acute upper respiratory infection, unspecified (principal)
CPT/HCPCS: 0241U

== ENCOUNTER 2023-08-05 14:14 | Outpatient (AMB) | payer BC, SELFPAY ==
[2023-08-05 14:19] VITALS: BMI 28.9
--- NOTE | 2023-08-05 14:19 | A.OFFVIS_ITS ---
VS Expanded 08/05/23 14:19 08/05/23 14:41 Height 5 ft 3 in 5 ft 3 in Weight 163 lb 2.273 oz 163 lb BMI 28.9 28.9 Intake Visit Reasons: PCOS/CONFIRMED Allergies shellfish derived [SHELLFISH DERIVED] Allergy (Unknown, Verified 07/23/23 13:01) ANAPHYLAXIS Nutrition Presentation Details: Pt presents for MNT for PCOS. Pt was referred by Dr. Rodriguez, [place] [facility] age of 21 yrs Reports working on making healthier food choices, including fruits/veg B: croissant coffee with caramel L: yogurt flip S: snapple , applesauce carrot sticks:fruits/veg: dinner: salad/chicken physical activity: walking 30 minutes /day fish- allergic etoh: occ smoking : denies looking for easy meal prep ideas BS Monitoring Most Recent Diabetes Results: No Data to Display RTL-Dmzenuw-Us.Jeor Equation Height: 5 ft 3 in Weight: 163 lb Resting Metabolic Rate: 1444.90 Calculated Activity Level: Sedentary Calories Needed to Maintain Weight: 1733.88 Diagnosis Nutrition problem #1: food nutri know defi As related to (etiology) #1: diagnosis As evidenced by (sign/symptom) #1: knowledge deficit of diet Monitoring/Goals Nutrition problem monitoring: level of knowledge/skill Nutrition goal/outcome: list 3 high fiber foods Learning/Education Readiness to learn: good [facility] Medical History Hyperandrogenism Hirsutism Diarrhea Generalized anxiety disorder Asthma Elevated LFTs Transaminitis Vitamin D deficiency Multinodular thyroid Remove/insert IUD Nail fungus Vaccine reaction Surgical History History of root canal procedure Hx of thyroidectomy Family History Mother Asthma High blood pressure Father Diabetes Affective bipolar disorder Mental health disorder Social History Household Members: Family Housing: House Alcohol intake: current Alcohol intake frequency: holidays/special occasions only Patient Tobacco Use Status: Current everyday Tobacco user Tobacco use type: Cigarette Cigarettes Per Day: 4 e-Cigarette/Vaping Use: Never Used Second Hand Smoke Exposure: Yes Substance Use Type: Marijuana service: No Current occupational status: employed Current occupational exposures/hazards: No Gender identity: Female Cognitive needs: No Hearing needs: No Vision needs: Yes Female Reproductive History Menstrual Age of Menarche: 12 Assessment & Plan Assessment & Plan (1) PCOS (polycystic ovarian syndrome): Code(s): E28.2 - Polycystic ovarian syndrome Category: Medical Plan: Wt: 74 Kg ( 07/2023 ) Est kcal needs as per MSJ: 1700 (40% carb, 30% protein/fat) Est fluid needs as per 30 ml/d: 2200 Est prot per day as per 1 g/kg bw: 74 Recommend fiber intake : 8-10 g per day and gradually increase to 25-28 g per day for women and 35-38 g for men or as tolerated Recommend sodium intake per day : less than 2000 mg Educated patient on: ( R = reviewed V = verbalizes understanding N/R = needs review N/A = not applicable * Food sources of carbohydrate, adequate serving sizes and its role in various health conditions: R * Differences between complex carbohydrates a simple carbohydrates, role of fiber in diet: R * Lean protein sources of foods: R * Differences between types of fats and role in diet (mono on saturated fat fatty acids, saturated fatty acids, trans fats): R V N/R * Food sources of sodium in salt and healthy modifications for heart health in kidney health: R V R/V * Vitamins and minerals: R V N/R * Healthy plate method concept: R V N/R * Physical activity: Benefits a precaution: R Patient Instructions: Work on choosing whole grain/complex carbohydrates over simple carbs reduce total carb to 45 g at meal following healthy plate method and 0-20 g as snack see meal ideas as reference keep hydrated by having water with meals/snack , herb/fruit infused water Coding Level of Care Code Nutr Indiv Intake (24940) Diagnoses PCOS (polycystic ovarian syndrome) E28.2 Time Spent (min) 30
[2023-08-12 10:11] VITALS: BMI 28.9
== END 2023-08-05 15:13 | disposition home or self-care (01) ==
PROVIDERS: PCP Internal Medicine; Visit Provider Dietitian, Registered
DX: E28.2 Polycystic ovarian syndrome (principal)

== ENCOUNTER → 2023-08-05 14:14 | Outpatient (BNVA) | payer BC, SELFPAY | PROVIDERS: PCP Internal Medicine; Visit Provider Dietitian, Registered | DX: E28.2 Polycystic ovarian syndrome (principal); Z71.3 Dietary counseling and surveillance | CPT/HCPCS: 97802 ==

== ENCOUNTER 2023-08-21 08:15 | Outpatient (AMB) | payer SELFPAY ==
[2023-08-21 08:37] VITALS: BP 120/74; PULSE 76; TEMP 36.6; O2SAT 99; BMI 28.9
--- NOTE | 2023-08-21 08:37 | MHC.OFFWIV ---
Intake Vital Signs 08/21/23 08:37 Height 5 ft 3 in Weight 163 lb BMI 28.9 BP 120/74 Blood Pressure Location Rt brachial Position Sitting Pulse 76 Pulse Source Pulse Oximeter Temp 97.9 F Temp Source Oral Pulse Oximetry (%) 99 Oxygen Delivery Method Room Air Intake Visit Reasons: EP sore throat chills stuffy nose headache Intake Note: pt is here for sore throat, chills, stuffy nose and headache, mom and step dad both came back positive for covid Patient Tobacco Use Status: Current everyday Tobacco user Allergies shellfish derived [SHELLFISH DERIVED] Allergy (Unknown, Verified 08/21/23 08:38) ANAPHYLAXIS Do you need a note to return to daycare/school/sports/work: No HPI HPI Comments History of Present Illness Details Patient is a 27-year-old female complaining of 2 days of a sore throat, headache, stuffy nose and chills. She states she also has a dry cough and head congestion. She admits to a history of asthma and has her Singulair and ProAir inhalers. She has not needed to use her ProAir inhaler yet. She denies any chest congestion, sinus pain, ear pain, shortness of breath, chest pain, wheezing, fevers, nausea, vomiting or diarrhea. She states her mom and dad both tested positive for COVID after her mother returned from a trip to [place] 5 days ago. She states her and her sister are both symptomatic and have been treating her symptoms with lesl-oaa-nigjigg medications. [facility] Medical History Hyperandrogenism Hirsutism Diarrhea Generalized anxiety disorder Asthma Elevated LFTs Transaminitis Vitamin D deficiency Multinodular thyroid Remove/insert IUD Nail fungus Vaccine reaction Surgical History History of root canal procedure Hx of thyroidectomy Family History Mother Asthma High blood pressure Father Diabetes Affective bipolar disorder Mental health disorder Social History Household Members: Family Housing: House Alcohol intake: current Alcohol intake frequency: holidays/special occasions only Patient Tobacco Use Status: Current everyday Tobacco user Tobacco use type: Cigarette Cigarettes Per Day: 4 e-Cigarette/Vaping Use: Never Used Second Hand Smoke Exposure: Yes Substance Use Type: Marijuana service: No Current occupational status: employed Current occupational exposures/hazards: No Gender identity: Female Cognitive needs: No Hearing needs: No Vision needs: Yes Female Reproductive History Menstrual Age of Menarche: 12 Review of Systems Const All systems reviewed & are unremarkable except as noted in HPI and below Physical Exam Vital Signs: Last Vital Signs Temp 97.9 F 08/21/23 08:37 Pulse 76 08/21/23 08:37 BP 120/74 08/21/23 08:37 Pulse Ox 99 08/21/23 08:37 Oxygen Delivery Method Room Air 08/21/23 08:37 BMI result Body Mass Index 28.9 Const General: cooperative, healthy appearing, comfortable and no acute distress Orientation/consciousness: patient oriented x3 Limitations: no limitations HEENT Head: Yes normal to inspection Ears: hearing grossly normal bilaterally, external ears normal and TM's normal bilaterally General nose exam: Normal external nose present, Normal nares present and No nasal discharge present Face and sinus: Yes normal facial exam and Yes sinuses nontender Mouth: Normal oral and palatal mucosa present and moist mucous membranes Throat: Yes tonsils normal, Yes uvula midline and Yes posterior oropharynx abnormal (Erythema) Eyes General: appearance normal, both eyes and all related structures Neck Neck: Yes normal visual inspection Resp Effort & Inspection: normal respiratory effort and able to speak in complete sentences Skin General skin exam: no rashes or lesions noted Neuro General: patient oriented x3 Extrem General: Yes normal to inspection and Yes no clubbing, cyanosis or edema Results AMB Rapid Strep AMB Rapid Strep Negative Last Edit by Brandt Wilcox CMA on 08/21/23 09:39 Results Reviewed Results Reviewed: Laboratory Last Values Strep Scn Rapid Clinic Negative 08/21/23 09:39 Assessment & Plan Assessment & Plan (1) Upper respiratory infection: Comment: Code(s): J06.9 - Acute upper respiratory infection, unspecified Qualifiers: URI type: unspecified URI Qualified Code(s): J06.9 - Acute upper respiratory infection, unspecified Plan: Tested the patient for flu, COVID and RSV. Recommended staying isolated and out of work until 24 hours symptom free. Advised will write work note if needed. We did discussed Paxlovid and possible prescription if she tests positive for Covid. Orders: Orders SARS-CoV2/FLU/RSV Today J06.9 - Acute upper respiratory infection, unspecified AMB Rapid Strep Screen Today Z13.9 - Encounter for screening, unspecified Coding Level of Care Code Est Pt Level 3 (96287) Diagnoses Upper respiratory tract infection, unspecified type J06.9 URI type: unspecified URI
== END 2023-08-21 09:17 | disposition home or self-care (01) ==
PROVIDERS: PCP Internal Medicine; Visit Provider Physician Assistant
DX: J06.9 Acute upper respiratory infection, unspecified (principal); J02.9 Acute pharyngitis, unspecified
CPT/HCPCS: 87880; 99213

== ENCOUNTER 2023-08-21 08:57 | Outpatient (REF) | payer BC, SELFPAY ==
[2023-08-21 11:46] LABS: Influenza A PCR NEGATIVE (Negative); Influenza B PCR NEGATIVE (Negative); Resp Syncy Virus RNA Qual PCR NEGATIVE (Negative); SARS COV2 PCR INHOUSE POSITIVE (Negative)
== END 2023-08-21 08:58 | disposition home or self-care (01) ==
LOC: HO.LAB 08:57
PROVIDERS: Visit Provider Physician Assistant
DX: J06.9 Acute upper respiratory infection, unspecified (principal)
CPT/HCPCS: 0241U

== ENCOUNTER 2023-10-30 09:47 | Outpatient (REF) | payer BC, SELFPAY ==
[2023-10-30 13:58] LABS: Influenza A PCR NEGATIVE (Negative); Influenza B PCR NEGATIVE (Negative); Resp Syncy Virus RNA Qual PCR NEGATIVE (Negative); SARS COV2 PCR INHOUSE NEGATIVE (Negative)
== END 2023-10-30 09:48 | disposition home or self-care (01) ==
LOC: HO.LAB 09:47
PROVIDERS: PCP Internal Medicine; Visit Provider Physician Assistant
DX: J06.9 Acute upper respiratory infection, unspecified (principal)
CPT/HCPCS: 0241U

== ENCOUNTER 2023-10-30 09:47 | Outpatient (AMB) | payer BC, SELFPAY ==
[2023-10-30 09:49] VITALS: BP 108/60; PULSE 71; TEMP 36.9; O2SAT 98; BMI 29.0
--- NOTE | 2023-10-30 09:49 | AM.OFFWIN_ITS ---
Intake Vital Signs 10/30/23 09:49 Height 5 ft 3 in Weight 164 lb BMI 29.0 BP 108/60 Blood Pressure Location Lt brachial Position Sitting Pulse 71 Pulse Source Pulse Oximeter Temp 98.5 F Temp Source Oral Pulse Oximetry (%) 98 Oxygen Delivery Method Room Air Intake Visit Reasons: EP Fever, cough, aches, chill Intake Note: pt c/o fever, cough, body aches and chills Patient Tobacco Use Status: Current everyday Tobacco user Allergies shellfish derived [SHELLFISH DERIVED] Allergy (Unknown, Verified 10/30/23 09:55) ANAPHYLAXIS Do you need a note to return to daycare/school/sports/work: No HPI HPI Comments History of Present Illness Details Patient is a 28-year-old female complaining of head congestion, a dry cough, some shortness of breath, sinus pressure, subjective fevers and chills. She does state she has a history of asthma and has been using her rescue inhaler more than normal but with good relief of her shortness of breath. She states she is trying to stay well hydrated. She did take a COVID test this morning at home and it was negative. She denies any sick contacts. She denies any nausea vomiting or diarrhea, ear pain or sinus pain. She states she does take an allergy pill every day and did take some Mucinex once yesterday and felt better very shortly after PFSH Medical History Hyperandrogenism Hirsutism Diarrhea Generalized anxiety disorder Asthma Elevated LFTs Transaminitis Vitamin D deficiency Multinodular thyroid Remove/insert IUD Nail fungus Vaccine reaction Surgical History History of root canal procedure Hx of thyroidectomy Family History Mother Asthma High blood pressure Father Diabetes Affective bipolar disorder Mental health disorder Social History Household Members: Family Housing: House Alcohol intake: current Alcohol intake frequency: holidays/special occasions only Patient Tobacco Use Status: Current everyday Tobacco user Tobacco use type: Cigarette Cigarettes Per Day: 4 e-Cigarette/Vaping Use: Never Used Second Hand Smoke Exposure: Yes Substance Use Type: Marijuana service: No Current occupational status: employed Current occupational exposures/hazards: No Gender identity: Female Cognitive needs: No Hearing needs: No Vision needs: Yes Female Reproductive History Menstrual Age of Menarche: 12 Review of Systems Const All systems reviewed & are unremarkable except as noted in HPI and below Physical Exam Vital Signs: Last Vital Signs Temp 98.5 F 10/30/23 09:49 Pulse 71 10/30/23 09:49 BP 108/60 10/30/23 09:49 Pulse Ox 98 10/30/23 09:49 Oxygen Delivery Method Room Air 10/30/23 09:49 BMI result Body Mass Index 29.0 Const General: cooperative, healthy appearing, comfortable and no acute distress Orientation/consciousness: patient oriented x3 Limitations: no limitations HEENT Head: Yes normal to inspection Ears: hearing grossly normal bilaterally, external ears normal and TM's normal bilaterally General nose exam: Normal external nose present, Normal nares present and No nasal discharge present Face and sinus: Yes normal facial exam and Yes sinuses nontender Mouth: Normal oral and palatal mucosa present and moist mucous membranes Throat: Yes tonsils normal, Yes uvula midline and Yes posterior oropharynx abnor mal (Erythema) Eyes General: appearance normal, both eyes and all related structures Neck Neck: Yes normal visual inspection Resp Effort & Inspection: normal respiratory effort, able to speak in complete sentences, no respiratory distress, not tachypneic, no tripod positioning and no use of accessory muscles Auscultation: clear to auscultation bilaterally Cardio Rate: regular rate Rhythm: regular rhythm Heart sounds: normal S1 and S2 Skin General skin exam: no rashes or lesions noted Neuro General: patient oriented x3 Extrem General: Yes normal to inspection and Yes no clubbing, cyanosis or edema Assessment & Plan Assessment & Plan (1) Upper respiratory infection: Comment: Code(s): J06.9 - Acute upper respiratory infection, unspecified Qualifiers: URI type: unspecified URI Qualified Code(s): J06.9 - Acute upper respiratory infection, unspecified Plan: Vital signs are stable and patient is well-appearing, lungs are clear to auscultation. We did send a flu COVID and RSV. Recommended patient continue to use her inhaler as needed, Mucinex as directed and continue her allergy pill as well as adding in Flonase to clear up her sinus pressure and nasal congestion. Plan See above Coding Level of Care Code Est Pt Level 3 (49599) Diagnoses Upper respiratory tract infection, unspecified type J06.9 URI type: unspecified URI
== END 2023-10-30 10:13 | disposition home or self-care (01) ==
PROVIDERS: PCP Internal Medicine; Visit Provider Physician Assistant
DX: J06.9 Acute upper respiratory infection, unspecified (principal)

== ENCOUNTER 2023-12-25 09:50 | Outpatient (AMB) | payer BC, SELFPAY ==
--- NOTE | 2023-12-25 09:56 | AM.OFFWIN_ITS ---
Intake Vital Signs 12/25/23 09:58 Height 5 ft 3 in Weight 165 lb BMI 29.2 BP 110/78 Blood Pressure Location Rt brachial Position Sitting Pulse 94 Pulse Source Pulse Oximeter Temp 98.0 F Temp Source Oral Pulse Oximetry (%) 98 Oxygen Delivery Method Room Air Intake Visit Reasons: EP UTI? Intake Note: Patient here for foul smelling odor, burning sensation and frequency that has been present for about 2 days. Patient Tobacco Use Status: Current everyday Tobacco user Allergies shellfish derived [SHELLFISH DERIVED] Allergy (Unknown, Verified 12/25/23 10:06) ANAPHYLAXIS Do you need a note to return to daycare/school/sports/work: No HPI EP UTI? HPI Details This note is constructed using voice recognition software. While every effort has been made to ensure accuracy, civil preparedness training officer errors may have been included. The patient is a 28 year old female who presents to the clinic today with urinary frequency, urgency, and burning for the past 2 days. She started increasing her hydration yesterday to help try to flush it out. She denies fever, chills, back pain. She is sexually active, no new partners in the past 7 years. No vaginal discharge, lesions, itch.. [facility] Medical History Hyperandrogenism Hirsutism Diarrhea Generalized anxiety disorder Asthma Elevated LFTs Transaminitis Vitamin D deficiency Multinodular thyroid Remove/insert IUD Nail fungus Vaccine reaction Surgical History History of root canal procedure Hx of thyroidectomy Family History Mother Asthma High blood pressure Father Diabetes Affective bipolar disorder Mental health disorder Social History Household Members: Family Housing: House Alcohol intake: current Alcohol intake frequency: holidays/special occasions only Patient Tobacco Use Status: Current everyday Tobacco user Tobacco use type: Cigarette Cigarettes Per Day: 4 e-Cigarette/Vaping Use: Never Used Second Hand Smoke Exposure: Yes Substance Use Type: Marijuana service: No Current occupational status: employed Current occupational exposures/hazards: No Gender identity: Female Cognitive needs: No Hearing needs: No Vision needs: Yes Female Reproductive History Menstrual Age of Menarche: 12 Review of Systems Const All systems reviewed & are unremarkable except as noted in HPI and below Physical Exam Vital Signs: Last Vital Signs Temp 98.0 F 12/25/23 09:58 Pulse 94 12/25/23 09:58 BP 110/78 12/25/23 09:58 Pulse Ox 98 12/25/23 09:58 Oxygen Delivery Method Room Air 12/25/23 09:58 BMI result Body Mass Index 29.2 Const General: cooperative, healthy appearing, comfortable, no acute distress and alert Orientation/consciousness: patient oriented x3 Limitations: no limitations Resp Effort & Inspection: normal respiratory effort and able to speak in complete sentences Other: Deferred General: Yes no CVA tenderness Back/Spine/Pelvis Back: no CVA tenderness Skin General skin exam: no rashes or lesions noted, elasticity normal and turgor normal Neuro General: patient oriented x3 Psych Appearance: grossly normal Mental Status: mental status grossly normal Speech and movement: Normal speech and movement present Affect: normal affect Results AMB Urinalysis, Automated UA Leukoctes 0 Melanie/uL Last Edit by HERIBERTO Wolff on 12/25/23 10:12 UA Nitrite Positive Last Edit by Chris Sarabia CCM on 12/25/23 10:12 UA Urobilinogen 0.2 mg/dL Last Edit by Chris Sarabia CCM on 12/25/23 10:12 UA Protein 0 mg/dL Last Edit by Chris Sarabia CCM on 12/25/23 10:12 UA pH 6.0 Last Edit by Chris Sarabia CCM on 12/25/23 10:12 UA Blood 25 Cesar/uL Last Edit by Chris Sarabia CCM on 12/25/23 10:12 UA Specific [place] 1.025 Last Edit by Chris Sarabia CCM on 12/25/23 10:12 UA Ketone Negative Last Edit by HERIBERTO Wolff on 12/25/23 10:12 UA Bilirubin 0 mg/dL Last Edit by Chris Sarabia CCM on 12/25/23 10:12 UA Glucose 0 mg/dL Last Edit by Chris Sarabia CCM on 12/25/23 10:12 Assessment & Plan Assessment & Plan (1) UTI (urinary tract infection): Code(s): N39.0 - Urinary tract infection, site not specified Qualifiers: Urinary tract infection type: acute cystitis Hematuria presence: without hematuria Qualified Code(s): N30.00 - Acute cystitis without hematuria Plan: Supportive measures encouraged and reviewed. Antibiotic sent to requested pharmacy, advised patient to take antibiotics until completed and not to stop if feeling better, unless the patient has side effects. Advised patient to follow up with primary care provider with worsening or failure to resolve. Plan See above for full details and plan. Orders: Orders AMB Urinalysis Automated Today Z13.9 - Encounter for screening, unspecified Medications: New nitrofurantoin monohyd/m-cryst 100 mg must administer with a meal/food 100 mg PO Q12H 5 days 10 caps 0RF Coding Level of Care Code Est Pt Level 3 (09566) Diagnoses Acute cystitis without hematuria N30.00 Urinary tract infection type: acute cystitis Hematuria presence: without hematuria
[2023-12-25 09:58] VITALS: BP 110/78; PULSE 94; TEMP 36.7; O2SAT 98; BMI 29.2
== END 2023-12-25 10:46 | disposition home or self-care (01) ==
PROVIDERS: PCP Internal Medicine; Visit Provider Registered Nurse
DX: N30.00 Acute cystitis without hematuria (principal); Z13.9 Encounter for screening, unspecified

== ENCOUNTER → 2023-12-25 09:50 | Outpatient (BNVA) | payer BC, SELFPAY | PROVIDERS: PCP Internal Medicine; Visit Provider Registered Nurse | DX: N30.00 Acute cystitis without hematuria (principal) | CPT/HCPCS: 81003 ==

== ENCOUNTER 2024-01-23 07:57 | Outpatient (REF) | payer BC, SELFPAY ==
[2024-01-24 09:26] LABS: HPV 16,18/45 See PAP report
== END 2024-01-23 07:58 | disposition home or self-care (01) ==
LOC: HO.LNP 07:57
PROVIDERS: PCP Internal Medicine; Visit Provider Obstetrics & Gynecology
DX: R87.610 Atypical squamous cells of undetermined significance on cytologic smear of cervix (ASC-US) (principal); R87.810 Cervical high risk human papillomavirus (HPV) DNA test positive
CPT/HCPCS: 87624; 88175

== ENCOUNTER 2024-01-23 07:57 | Outpatient (AMB) | payer BC, SELFPAY ==
--- NOTE | 2024-01-23 08:49 | A.OFFVIS_ITS ---
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 No complaints. Would like to discuss sterilization Last Pap/HPV was in 08/03 ascus/HPV positive E6 E7 positive 16/18/45 negative, colpo biopsy/ECC was negative [facility] Medical History Hyperandrogenism Hirsutism Diarrhea Generalized anxiety disorder Asthma Elevated LFTs Transaminitis Vitamin D deficiency Multinodular thyroid Remove/insert IUD Nail fungus Vaccine reaction Surgical History History of root canal procedure Hx of thyroidectomy Family History Mother Asthma High blood pressure Father Diabetes Affective bipolar disorder Mental health disorder Social History Household Members: Family Housing: House Alcohol intake: current Alcohol intake frequency: holidays/special occasions only Patient Tobacco Use Status: Current everyday Tobacco user Tobacco use type: Cigarette Cigarettes Per Day: 4 e-Cigarette/Vaping Use: Never Used Second Hand Smoke Exposure: Yes Substance Use Type: Marijuana service: No Current occupational status: employed Current occupational exposures/hazards: No Gender identity: Female Cognitive needs: No Hearing needs: No Vision needs: Yes Female Reproductive History Menstrual Age of Menarche: 12 control method: progestin IUCD Date of last pap smear: 08/08/22 History of abnormal pap smear: Yes (HPV +) Review of Systems Const All systems reviewed & are unremarkable except as noted in HPI and below Card Reports as per HPI Resp Reports as per HPI GI Reports as per HPI and Reports no additional complaints Reports as per HPI Physical Exam Const General: cooperative, healthy appearing and comfortable Chest Chest palpation & inspection: normal inspection of the chest and normal palpation of entire chest wall Breast/axilla inspection: normal inspection of the breasts and normal inspection of the axillae Breast/axilla palpation: normal palpation of the breasts, normal palpation of the axillae and no axillary lymphadenopathy Resp Effort & Inspection: normal respiratory effort Auscultation: clear to auscultation bilaterally Percussion: percussion normal Cardio Palpation: normal PMI Rate: regular rate Rhythm: regular rhythm Heart sounds: no murmurs and no rubs Peripheral pulses: Peripheral pulses 2+ throughout GI Inspection: Yes normal to inspection Palpation (GI): Soft to palpation, nontender, no guarding, not rigid and No hepatosplenomegaly present Percussion: Yes normal to percussion Auscultation: normal bowel sounds Rectal Exam - Female: deferred General: Yes bladder normal to palpation External Female Exam: No lesion Speculum Exam - Vagina: normal appearance of the vagina, normal palpation, normal vaginal discharge and not erythematous Speculum Exam - Cervix: normal appearance of the cervix, normal palpation and O ther cervical findings present (IUD thread seen) Bimanual exam- vagina & uterus: normal bimanual exam, normal palpation, uterine size normal, bladder normal to palpation, consistency normal and normal palpation Bimanual Exam- Adnexa, other: normal adnexae, no masses and no tenderness Assessment & Plan Assessment & Plan (1) Well woman exam with routine gynecological exam: Code(s): Z01.419 - Encounter for gynecological examination (general) (routine) without abnormal findings Category: Medical Plan: Pap smear done. Counseled the patient about the recommended dietary allowance of 1000 mg of Calcium & 600 IU of vitamin D. The patient was instructed to perform monthly self-breast exams and to schedule an annual exam in a year; All questions answered and the patient verbalized understanding. Instructed the patient to schedule annual exam in a year (2) Sterilization consult: Code(s): Z30.09 - Encounter for other general counseling and advice on contraception Category: Medical Plan: Discussed with the patient the different options of control including control pills/Nuvaring, DMPA, different types of IUD ?s, sterilization. All the pros, cons, risks and benefits of each were discussed with the patient. The patient decided to stay with Mirena IUD, with her history of polycystic ovarian syndrome, an increase in the risk of abnormal uterine bleeding endometrial pathology, Mirena IUD be superior shows compared to sterilization. All questions answered, the patient verbalized understanding agreed with the plan Coding Level of Care Code Est Pt Level 3 (92547) Est Pt Prev Care 18-39y(54725) Diagnoses Well woman exam with routine gynecological exam Z01.419 Sterilization consult Z30.09
== END 2024-01-23 09:06 | disposition home or self-care (01) ==
PROVIDERS: PCP Internal Medicine; Visit Provider Obstetrics & Gynecology
DX: Z01.419 Encounter for gynecological examination (general) (routine) without abnormal findings (principal); Z30.09 Encounter for other general counseling and advice on contraception
CPT/HCPCS: 99395

== ENCOUNTER 2024-02-19 14:09 | Outpatient (AMB) | payer BC, SELFPAY ==
--- NOTE | 2024-02-19 14:25 | A.OFFPC_ITS ---
Vital Signs 02/19/24 14:27 Height 5 ft 3 in Weight 167 lb 6 oz BMI 29.6 BP 100/70 Blood Pressure Location Lt brachial Position Sitting Pulse 74 Pulse Source Pulse Oximeter Pulse Oximetry (%) 99 Oxygen Delivery Method Room Air Intake Visit Reasons: PE Intake Note: Patient is here today for a physical. 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 per policy Accompanied by: Self / Same As Patient Allergies shellfish derived [SHELLFISH DERIVED] Allergy (Unknown, Verified 02/19/24 15:14) ANAPHYLAXIS Medication List - Last Reconciled 02/19/24 by Shane Mathews MD albuterol sulfate 90 mcg/actuation (Ventolin HFA) 2 puffs inhalation Q6H PRN 30 days budesonide-formoterol 160-4.5 mcg/actuation (Symbicort) 2 puffs inhalation Q12H cetirizine 10 mg PO DAILY PRN cholecalciferol (vitamin D3) 25 mcg PO DAILY hydrocortisone 2.5% 1 appl topical BID PRN levonorgestrel (Mirena) intrauterine montelukast 10 mg PO BEDTIME Tobacco use date assessed: 02/19/24 Dental Screening Dental Screen Date: 02/19/24 Did you have a dental visit in the last 12 months?: Yes Did you have a dental problem in the last 6 months where you did not have access to dental care?: No Was dental information given to patient?: Patient has dentist HPI PE HPI Details Patient is requesting an annual physical. [facility] Medical History Hyperandrogenism Hirsutism Diarrhea Generalized anxiety disorder Asthma Elevated LFTs Transaminitis Vitamin D deficiency Multinodular thyroid Remove/insert IUD Nail fungus Vaccine reaction Surgical History History of root canal procedure Hx of thyroidectomy Family History Mother Asthma High blood pressure Father Diabetes Affective bipolar disorder Mental health disorder Social History Household Members: Family Housing: House Alcohol intake: current Alcohol intake frequency: holidays/special occasions only Patient Tobacco Use Status: Current everyday Tobacco user Tobacco use type: Cigarette Cigarette Packs Per Day: 0.5 Cigarettes Per Day: 7 e-Cigarette/Vaping Use: Never Used Second Hand Smoke Exposure: Yes Substance Use Type: Marijuana service: No Current occupational status: employed Current occupational exposures/hazards: No Gender identity: Female Cognitive needs: No Hearing needs: No Vision needs: Yes Female Reproductive History Menstrual Age of Menarche: 12 Questionnaire PHQ-9 Over the last 2 weeks, how often have you been bothered by any of the following problems? 1. Little interest or pleasure in doing things: several days 2. Feeling down, depressed, or hopeless: several days 3. Trouble falling or staying asleep, or sleeping too much: several days 4. Feeling tired or having little energy: several days 5. Poor appetite or overeating: several days 6. Feeling bad about yourself - or that you are a failure or have let yourself or your family down: several days 7. Trouble concentrating on things, such as reading the newspaper or watching television: several days 8. Moving or speaking so slowly that other people could have noticed. Or the opposite - being so fidgety or restless that you have been moving around a lot more than usual: not at all 9. Thoughts that you would be better off or of hurting yourself in some way: not at all Total score: 7 Depression Screening Interpretation: Positive (Seasonal, no medications needed.) Depression Screening Follow-up: Existing condition Depression Screening Done: Yes Source: Developed by Drs. Kwame Malik, Jazmine Smith, Deniz Orozco and colleagues, with an educational sruthi from [employer]. Thrive Questionnaire Date Thrive assessed: 02/19/24 I am a: Patient What is your living situation today?: I have a steady place to live Within the past 12 months, did the food you bought not last and you didn't have the money to get more?: Never true Within the past 12 months, did you worry whether your food would run out before you got money to buy more?: Never true Do you have trouble paying for medicines?: No Do you have trouble getting transportation to medical appointments?: No Do you have trouble paying your heating and electricity bill?: No Do you have trouble taking care of your child, family member or friend?: No Do you have trouble with day-to-day activities such as bathing, preparing meals, shopping, managing finances, etc.?: No Are you currently unemployed and looking for a job?: No Are you interested in more education?: No Please select the resources that you would like help with: None Currently or been in a relationship where the following occur: No concerns reported THRIVE Score: 0 AUDIT C Alcohol Use Questionnaire (AUDIT-C) 1. How often do you have a drink containing alcohol?: Monthly or less 2. How many drinks containing alcohol do you have on a typical day when you are drinking?: 1 or 2 3. How often do you have six or more drinks on one occasion?: Less than monthly Total Score: 2 AKSHAT-7 AMB Questionnaire AKSHAT-7 Date AKSHAT - 7 assessed: 02/19/24 Feeling nervous, anxious, or on edge: 1 = Several days Not being able to stop or control worryin = Several days Worrying too much about different things: 1 = Several days Trouble relaxin = Several days Being so restless that it is hard to sit still: 1 = Several days Becoming easily annoyed or irritable: 1 = Several days Feeling afraid as if something awful might happen: 1 = Several days Total AKSHAT-7 score (0-4 normal; 5-9 mild; 10-14 moderate; 15-21 severe): 7 Source: Developed by Drs. Kwame Malik, Jazmine Smith, Deniz Orozco and colleagues, with an educational sruthi from [employer]. Physical exam (Primary Care) Vital Signs: Last Vital Signs Pulse 74 02/19/24 14:27 BP 100/70 02/19/24 14:27 Pulse Ox 99 02/19/24 14:27 Oxygen Delivery Method Room Air 02/19/24 14:27 Care Plan Goal for BP management: Blood pressure is in range. BMI result Body Mass Index 29.6 Tobacco/Smoking Status: Tobacco use Status Tobacco use date assessed 02/19/24 02/19/24 14:32 Patient Tobacco Use Status Current everyday Tobacco 02/19/24 14:32 Tobacco use type Cigarette 02/19/24 14:32 e-Cigarette/Vaping Use Never Used 02/19/24 14:32 Are you ready to quit: No Tobacco cessation counseling provided: No PHQ-9: PHQ-9 Score PHQ-9: Total score 7 02/19/24 14:49 Depression Screening Interpretation: Positive (Seasonal, no medications needed.) Depression Screening Follow-up: Existing condition Thrive Assessment: Date of Thrive Assessment Date Thrive assessed 02/19/24 02/19/24 14:32 Currently or been in a relationship where the following occur: No concerns reported Const Other: Examination done with a female certified medical coding specialist in the room. Chest: Patient has an erythematous rash between her breasts. Breasts are pendulous and the skin beneath the breast is moist. General: cooperative and healthy appearing Nutritional Appearance: well nourished Orientation/consciousness: patient oriented x3 Limitations: no limitations HENMT Head: Yes normal to inspection Eyes General: appearance normal, both eyes and all related structures Neck Neck: Yes normal visual inspection Chest Chest palpation & inspection: normal palpation of entire chest wall Resp Effort & Inspection: normal respiratory effort Neuro General: patient oriented x3 Office Procedures Flu Questionnaire Does the patient have a severe egg allergy?: No Does the patient have severe life threatening allergies?: No Does the patient have a fever or illness today?: No Has the patient ever had Guillain-Clarence Syndrome?: No Has the patient ever had any past reaction to a flu shot?: No Immunizations Fluarix Triv [id number] (PF) 45 mcg (15 mcg x 3)/0.5 mL IM syringe Performing Provider: Shane Mathews MD [facility] Administered by: Marianne Ng RN on 02/19/24 14:47 Dose Route Admin Location Dispensed Lot Number Expiration Date [facility] Public Health Sanitarian Technician 0.5 mL IM Left Deltoid 0.5 mL [id number] 08/10/24 84042-734-16 8020select VIS Given Date VIS Provided VIS Publication Date 02/19/24 Single Vaccine 20 Eligibility Eligibility Date Funding Source Not [facility] Eligible 02/19/24 Private Coding Level of Care Code Est Pt Prev Care 18-39y(59388) Diagnoses Adult general medical exam Z00.00 Tinea corporis B35.4 Assessment & Plan Assessment & Plan (1) Adult general medical exam: Code(s): Z00.00 - Encounter for general adult medical examination without abnormal findings Category: Medical Plan: Blood work and urinalysis ordered. Will call with the results. (2) Tinea corporis: Code(s): B35.4 - Tinea corporis Plan: Ketoconazole ointment prescribed. To keep the area dry. Orders: Orders Influenza [id number] Immunization Today Z23 - Encounter for immunization
[2024-02-19 14:27] VITALS: BP 100/70; PULSE 74; O2SAT 99; BMI 29.6
== END 2024-02-19 15:26 | disposition home or self-care (01) ==
PROVIDERS: PCP Internal Medicine; Visit Provider Internal Medicine
DX: Z00.00 Encounter for general adult medical examination without abnormal findings (principal); B35.4 Tinea corporis; Z23 Encounter for immunization

== ENCOUNTER → 2024-02-19 14:09 | Outpatient (BNVA) | payer BC, SELFPAY | PROVIDERS: PCP Internal Medicine; Visit Provider Internal Medicine | DX: Z00.00 Encounter for general adult medical examination without abnormal findings (principal); Z23 Encounter for immunization; B35.4 Tinea corporis | CPT/HCPCS: 90471; 90656; 96127 ==

== ENCOUNTER 2024-03-21 08:40 | Outpatient (REF) | payer BC, SELFPAY ==
--- OUTSIDE RECORDS SUMMARY | 2024-03-21 08:46 | XMS_ITS | Encounter Summary ---
Author Organization [employer] Address [address] [place] [address] [address] [place] [address] Care Team Providers Care Laser Beam Cutter Name Role Phone Abida Candice [facility] Primary Care Provider [phone] Encounter Details Date Type Department Care Team (Latest Contact Info) Description 07/14/2018 Abstract [facility] Dental, Provider, DDS Social History Tobacco Use Types Packs/Day Years Used Date Smoking Tobacco: Never Assessed Comments Unknown Sex and Gender Information Value Date Recorded Sex Assigned at Female 12/11/2021 10:34 AM EDT Legal Sex Female 10:34 AM EDT Gender Identity Female 12/11/2021 10:34 AM EDT Sexual Orientation Don't know 12/11/2021 10 :34 AM EDT documented as of this encounter Plan of Treatment Not on file documented as of this encounter Visit Diagnoses Not on filedocumented in this encounter Care Teams Laser Beam Cutter Relationship Specialty Start Date End Date Candice Tai FNP [address] [place] [id number] PCP - General Family Medicine 07/18/21 03/20/23 documented as of this encounter
--- OUTSIDE RECORDS SUMMARY | 2024-03-21 08:46 | XMS_ITS | Clinical Summary ---
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 Name Role Phone Unavailable Primary Care Provider Unavailabl e Social History Tobacco Use Types Packs/Day Years Used Date Smoking Tobacco: Never Assessed Comments Unknown Sex and Gender Information Value Date Recorded Sex Assigned at Female 12/11/2021 10:34 AM EDT Legal Sex Female 10:34 AM EDT Gender Identity Female 12/11/2021 10:34 AM EDT Sexual Orientation Don't know 12/11/2021 10 :34 AM EDT Last Filed Vital Signs Vital Sign Reading Time Taken Comments Blood Pressure 98/64 04/30/2019 12:03 AM EDT Pulse 72 04/30/2019 12:03 AM EDT Temperature - - Respiratory Rate - - Oxygen Saturation - - Inhaled Oxygen Concentration - - Weight 67.7 kg (149 lb 3.2 oz) 04/30/2019 12:03 AM EDT Height 162.6 cm (5' 4 ) 04/30/2019 12:03 AM EDT Body Mass Index 25.61 04/30/2019 12:03 AM EDT Plan of Treatment Health Maintenance Due Date Last Done Comments Depression Screening 1995 Alcohol/Substance Use Screening 2007 Tobacco Screening 2007 Family Planning (PISQ) 08/29/2010 Pap Smear 08/29/2016 COVID-19 Vaccine ( season) 2023 Influenza Vaccine (#1) 2023 11/12/2017 DTaP/Tdap/Td Vaccines (8 - Td or Tdap) 09/20/2027 09/19/2017, 09/18/2007, 03/07/2000, Additional history exists Zoster Vaccines (1 of 2) 08/29/2045 RSV Patients and Patients Aged 60 years or older (1 - 1-dose 75+ series) 08/29/2070 Hepatitis B Vaccines Completed 03/07/2000, 01/27/1997, 09/14/1996, Additional history exists IPV Vaccines Completed 03/07/2000, 01/11, 09/14/1996, Additional history exists HPV Vaccines Completed 12/25/2017, 06/17/2009 HIB Vaccines Aged Out No longer eligi ble based on patient's age to complete this topic Hepatitis A Vaccines Aged Out No long er eligible based on patient's age to complete this topic Meningococcal Vaccine Aged Out No araceli yakov eligible based on patient's age to complete this topic Pneumococcal Vaccine: Pediatrics (0 to 5 Years) and At-Risk Patients (6 to 49) Years) Aged Out No longer eligible based on patient's age to complete this topic RSV under 20 months Aged Out No longe r eligible based on patient's age to complete this topic Rotavirus Vaccines Aged Out No longer eligible based on patient's age to complete this topic
[2024-03-21 10:51] LABS: Hematocrit 41.7 % (37.0-47.0); Hemoglobin 14.1 g/dl (12.0-16.0); Mean Corpuscular HGB Conc 33.8 g/dl (31.0-35.0); Mean Corpuscular Volume 85.6 fL (80.0-98.0); Mean Platelet Volume 10.3 fL (9.4-12.3); Platelet Count 319 X10*3/uL (160-400); Red Blood Count 4.87 X10*6/uL (4.20-5.50); Red Cell Distribution Width 13.2 % (11.0-16.0); White Blood Count 6.8 X10*3/uL (4.8-10.8)
[2024-03-21 11:23] LABS: Appearance Urine Clear; Color Urine Yellow; Glucose Urine UA Negative (Negative); Leukocyte Esterase Urine Negative (Negative); Nitrite Urine Negative (Negative); PH 6.5 (5.0-9.0); Specific Gravity - Urine 1.025 (1.005-1.025); UMIC TRIGGER UA YES; Urine Blood Trace (Negative); Urine Ketones Negative (Negative); Urine Protein Negative (Neg-Trace)
[2024-03-21 11:26] LABS: Bacteria Urine 2+ (None Seen); Hyaline Casts Urine 0-2 /LPF (0-2); WBC Urine 0-5 /HPF (0-5)
[2024-03-21 11:58] LABS: Alanine Aminotransferase 89 U/L (0-31); Albumin Level 4.4 g/dL (3.5-5.0); Alkaline Phosphatase 92 U/L (39-117); Anion Gap 13 (12-20); Aspartate Amino Transferase 39 U/L (5-31); Bilirubin Direct 0.1 mg/dL (0.0-0.5); Bilirubin Total 0.3 mg/dL (0.0-1.0); Blood Urea Nitrogen 12 mg/dL (9-16); Calcium 9.5 mg/dL (8.4-10.2); Carbon Dioxide 24 mmol/L (22-29); Chloride 109 mmol/L (96-108); Cholesterol 193 mg/dL (<200); Estimated Glomerular Filt Rate > 60; Glucose Random 90 mg/dL (60-115); HDL Cholesterol 45 mg/dL (>40); LDL Cholesterol Calculated 135 mg/dL (<100); Potassium 4.1 mmol/L (3.3-5.1); Sodium 142 mmol/L (135-145); Thyroid Stimulating Hormone 1.61 uIU/mL (0.32-4.0); Triglycerides 66 mg/dL (<150)
== END 2024-03-21 08:41 | disposition home or self-care (01) ==
LOC: HO.LAB 08:40
PROVIDERS: PCP Internal Medicine; Visit Provider Internal Medicine
DX: R74.01 Elevation of levels of liver transaminase levels (principal)
CPT/HCPCS: 36415; 80048; 80061; 80076; 81001; 84443; 85027

== ENCOUNTER 2024-10-02 09:36 | Outpatient (AMB) | payer BC, SELFPAY ==
--- OUTSIDE RECORDS SUMMARY | 2024-10-02 09:40 | XMS_ITS | Clinical Summary ---
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 Worker Apprentice Name Role Phone Unavailable Primary Care Provider [...] Date Last Done Comments Depression Screening 1995 Disability Screening 1995 Alcohol/Substance Use Screening 2007 Tobacco Screening 2007 Family Planning (PISQ) 08/29/2010 Pap Smear 08/29/2016 COVID-19 Vaccine ( season) 2023 Influenza Vaccine (#1) 2024 11/12/2017 DTaP/Tdap/Td Vaccines (8 - Td or [...] patient's age to complete this topic Meningococcal B Vaccine Aged Out No l onger eligible based on patient's age to complete this topic Meningococcal Vaccine Aged Out No araceli yakov eligible based on patient's age to complete this topic Pneumococcal Vaccine: Pediatrics (0 to 5 Years) and At-Risk Patients (6 to 49) Years Aged Out No longer eligible based on patient's age to complete this topic RSV under 20 months Aged Out No longe r eligible based on patient's age to complete this topic Rotavirus Vaccines Aged Out No longer eligible based on patient's age to complete this topic
[2024-10-02 09:54] VITALS: BP 106/60; PULSE 94; TEMP 36.8; O2SAT 99; BMI 29.9
--- NOTE | 2024-10-02 09:54 | AM.OFFWIN_ITS ---
Intake Vital Signs 10/02/24 09:54 Height 5 ft 3 in Weight 169 lb BMI 29.9 BP 106/60 Blood Pressure Location Lt brachial Position Sitting Pulse 94 Pulse Source Pulse Oximeter Temp 98.3 F Temp Source Oral Pulse Oximetry (%) 99 Oxygen Delivery Method Room Air Intake Visit Reasons: EP Asthma acting up, congestion Intake Note: presents with concern for asthma flaring, c/o chest tightness,dyspnea, SOB Patient Tobacco Use Status: Current everyday Tobacco user Allergies shellfish derived (SHELLFISH DERIVED) Allergy (Unknown, Verified 10/02/24 09:55) ANAPHYLAXIS Do you need a note to return to daycare/school/sports/work: Yes HPI HPI Comments History of Present Illness Details History - The patient is a 29-year-old female pr esenting with difficulty breathing. - The breathing difficulty began about a week ago and has been getting progressively worse. - She uses Symbicort twice daily and has increased her use of the emergency inhaler. - Symptoms include coughing, shortness o f breath, and chest congestion without mucus. - She experiences chest pain, likely due to coughing. - No fever, sore throat, nasal congestio n, headache, or ear pain reported. - She denies chills, CP, SOB, abd pain, n/v/d, cough, or sick contacts. - Does not have a nebulizer at home. - She is also taking allergy medications at home. Physical Exam General: Cooperative, healthy appearing, comfortable and no acute distress Orientation/consciousness: Patient oriented x3 Limitations: No limitations Head: Normal to inspection Ears: Hearing grossly normal bilaterally, external ears normal and TM's normal bilaterally Nose: Normal external nose present, normal nares present, and no nasal discharge present. Face and sinus: Sinuses nontender to palpation. Mouth: Normal oral and palatal mucosa present and moist mucous membranes noted. Throat: Tonsils normal. Uvula is midline. Posterior oropharynx with erythema and no exudates. Eyes: Appearance normal, both eyes and all related structures Neck: Normal visual inspection, full ROM. No lymphadenopathy noted. Respiratory: Clear to auscultation bilaterally. Normal respiratory effort, able to speak in complete sentences. No respiratory distress, not tachypneic, no tripod positioning and no use of accessory muscles. Cardiovascular: Regular rate and rhythm. Normal S1 and S2 Skin: No rashes or lesions noted Patient was informed and verbally consented to the use of an ambient scribe for clinic note documentation during this visit [facility] Medical History Hyperandrogenism Hirsutism Diarrhea Generalized anxiety disorder Asthma Elevated LFTs Transaminitis Vitamin D deficiency Multinodular thyroid Remove/insert IUD Nail fungus Vaccine reaction Surgical History History of root canal procedure Hx of thyroidectomy Family History Mother Asthma High blood pressure Father Diabetes Affective bipolar disorder Mental health disorder Social History Household Members: Family Housing: House Alcohol intake: current Alcohol intake frequency: holidays/special occasions only Patient Tobacco Use Status: Current everyday Tobacco user Tobacco use type: Cigarette Cigarette Packs Per Day: 0.5 Cigarettes Per Day: 7 e-Cigarette/Vaping Use: Never Used Second Hand Smoke Exposure: Yes Substance Use Type: Marijuana service: No Current occupational status: employed Current occupational exposures/hazards: No Gender identity: Female Cognitive needs: No Hearing needs: No Vision needs: Yes Female Reproductive History Menstrual Age of Menarche: 12 Review of Systems Const All systems reviewed & are unremarkable except as noted in HPI and below Physical Exam Vital Signs: Last Vital Signs Temp 98.3 F 10/02/24 09:54 Pulse 94 10/02/24 09:54 BP 106/60 10/02/24 09:54 Pulse Ox 99 10/02/24 09:54 Oxygen Delivery Method Room Air 10/02/24 09:54 BMI result Body Mass Index 29.9 Office Procedures Nebulizer Treatment Nebulizer Treatment [id number]/[id number] RX initial, or Nebulizer Subsequent Treatment Office Meds ipratropium 0.5 mg-albuterol 3 mg (2.5 mg base)/3 mL nebulization soln Performing Provider: Jania Suazo PA-C Performing Location: [facility] Administered by: Jania Suazo PA-C on 10/02/24 10:46 Dose Route Admin Location Dispensed Lot Number Expiration Date [facility] Tower Dragline Operator 3 mL inhalation 3 mL [id number] 03/13/26 39974-880-35 [employer] Assessment & Plan Assessment & Plan (1) Asthma exacerbation: Code(s): J45.901 - Unspecified asthma with (acute) exacerbation Qualifiers: Asthma severity: mild Asthma persistence: intermittent Qualified Code(s): J45.21 - Mild intermittent asthma with (acute) exacerbation Plan Most likely asthma exacerbation vs viral illness Plan - Administer a nebulizer treatment to help with breathing difficulties. - Prednisone taper for 5 days - Continue with symbicort and albuterol inhalers - continue with allergy medications - tessalon perles as needed for cough - follow up with PCP Orders: Orders AMB Nebulizer Treatment Today J45.901 - Unspecified asthma with (acute) exacerbation Medications: New benzonatate 100 mg PO bid-tid PRN 21 caplets 0RF Cough 7 days prednisone 50 mg PO QAM 5 tabs 0RF Coding Level of Care Code Est Pt Level 4 (78018) Diagnoses Mild intermittent asthma with exacerbation J45.21 Asthma severity: mild Asthma persistence: intermittent CPT Codes Nebulizer Treatment - Nebulizer Treatment, initial or subsequent: 18228- Nebulizer/MDI RX initial, or Nebulizer Subsequent Treatment ([id number])
== END 2024-10-02 11:10 | disposition home or self-care (01) ==
PROVIDERS: PCP Internal Medicine; Visit Provider Physician Assistant Medical
DX: J45.901 Unspecified asthma with (acute) exacerbation (principal); J45.21 Mild intermittent asthma with (acute) exacerbation

== ENCOUNTER → 2024-10-02 09:36 | Outpatient (BNVA) | payer BC, SELFPAY | PROVIDERS: PCP Internal Medicine; Visit Provider Physician Assistant Medical | DX: J45.21 Mild intermittent asthma with (acute) exacerbation (principal); Z79.899 Other long term (current) drug therapy | CPT/HCPCS: 94640 ==